=== PATIENT | female | born 1985 | race Caucasian/White ===

== ENCOUNTER 2019-08-07 08:38 | Emergency (ER) | payer OTHER, MEDICAID ==
[~2019-08-07] VITALS: Ht 182.9 cm; Wt 99.8 kg
[2019-08-07 09:06] VITALS: BP 114/80
[2019-08-07 09:25] LABS: Basophils # (auto) 0 uL; Basophils % (auto) 0.8 % (0.0-2.0); Eosinophils # (auto) 0 uL; Eosinophils % (auto) 1.5 % (0.0-7.0); Hematocrit 36.6 % (36.0-46.0); Hemoglobin 12.7 g/dL (12.2-16.2); Lymphocytes # (auto) 1.2 uL; Lymphocytes % (auto) 35.5 % (10.0-50.0); Mean Corpuscular Hemoglobin 30.2 pg (28.0-32.0); Mean Corpuscular Hgb Conc. 34.7 g/dL (32.0-36.0); Monocytes # (auto) 0.2 uL; Monocytes % (auto) 6.2 % (0.0-12.0); Neutrophils # (auto) 1.8 uL; Nucleated Red Blood Cells % 0.3 %; Platelet Count (auto) 97 10^3/uL (140-450); Red Blood Cells 4.21 10^6/uL (4.0-5.20); Red Cell Distribution Width 14.8 % (11.8-14.3); White Blood Cell 3.3 10^3/uL (4.4-10.8)
[2019-08-07 09:50] LABS: Albumin 3.6 g/dL (3.4-5.0); Calcium 9.1 mg/dL (8.5-10.1); Potassium 3.7 mmol/L (3.5-5.1)
[2019-08-07 09:54] LABS: BUN/Creatinine Ratio 13.7; Bilirubin, Total 0.4 mg/dL (0.2-1.0); Total Protein 9.3 g/dL (6.4-8.2)
== END 2019-08-07 10:16 | disposition home or self-care (01) ==
LOC: EDBD 08:38 → ER 08:46
DX: F44.5 Conversion disorder with seizures or convulsions (principal); J32.9 Chronic sinusitis, unspecified; E78.5 Hyperlipidemia, unspecified; Z90.49 Acquired absence of other specified parts of digestive tract
CPT/HCPCS: 36415; 70450; 80053; 85025

== ENCOUNTER → 2019-11-25 | Emergency (ER) | payer OTHER, MEDICAID ==
[~2019-11-25] VITALS: Ht 177.8 cm; Wt 90.7 kg
[~2019-11-25] MED LIST: MECLIZINE HCL 25 MG TAB PO ONE
[2019-11-25 19:00] LABS: Basophils # (auto) 0 10 ^3/uL (0-0.2); Basophils % (auto) 0.3 % (0.0-2.0); Eosinophils # (auto) 0.1 10 ^3/uL (0-0.8); Eosinophils % (auto) 3.1 % (0.0-7.0); Hematocrit 38.7 % (36.0-46.0); Hemoglobin 13.1 g/dL (12.2-16.2); Lymphocytes # (auto) 1.5 10 ^3/uL (0.4-5.4); Lymphocytes % (auto) 37.6 % (10.0-50.0); Mean Corpuscular Hemoglobin 31.2 pg (28.0-32.0); Monocytes # (auto) 0.2 10 ^3/uL (0-1.3); Monocytes % (auto) 4.9 % (0.0-12.0); Neutrophils # (auto) 2.1 10 ^3/uL (1.6-8.6); Neutrophils % (auto) 54.1 % (37.0-80.0); Nucleated Red Blood Cells % 0.1 %; Platelet Count (auto) 115 10^3/uL (140-450); Red Cell Distribution Width 14.5 % (11.8-14.3); White Blood Cell 3.9 10^3/uL (4.4-10.8)
[2019-11-25 19:06] LABS: Urine Bacteria FEW /hpf (None Seen); Urine Blood 2+ /uL (Negative); Urine Mucus FEW (None Seen); Urine Specific Gravity 1.025 (1.001-1.035); Urine WBC 17 /hpf (0 - 5)
[2019-11-25 19:33] LABS: Calcium 8.8 mg/dL (8.5-10.1); Chloride 108 mmol/L (98-107); Potassium 3.5 mmol/L (3.5-5.1); Sodium 138 mmol/L (136-145)
[2019-11-25 19:41] LABS: Alanine Aminotransferase 28 U/L (13-56); Albumin 3.3 g/dL (3.4-5.0); Alkaline Phosphatase 66 U/L (45-117); Anion Gap 4 (5-15); Aspartate Aminotransferase 26 U/L (15-37); BUN/Creatinine Ratio 14.5; Bilirubin, Total 0.2 mg/dL (0.2-1.0); Blood Urea Nitrogen 12 mg/dL (7-18); Carbon Dioxide 26 mmol/L (21-32); GFR African American 101 mL/min; GFR Non-African American 84 mL/min; Glucose 64 mg/dL (74-106); Magnesium 2.5 mg/dL (1.6-2.6)
[2019-11-26] VITALS: BP 126/79
== END | disposition home or self-care (01) ==
LOC: EDUNIT# 18:20 → ER 18:21 → EDBD 18:21
DX: H81.10 Benign paroxysmal vertigo, unspecified ear (principal); N39.0 Urinary tract infection, site not specified
CPT/HCPCS: 36415; 70450; 80053; 81001; 81025; 83735; 84484; 85025; 99285; J8597; 93005

== ENCOUNTER 2019-12-21 19:06 | Emergency (ER) | payer OTHER, MEDICAID ==
[~2019-12-21] VITALS: Ht 172.7 cm; Wt 90.7 kg
[2019-12-21 21:09] VITALS: BP 137/87
== END 2019-12-21 22:00 | disposition home or self-care (01) ==
LOC: ER 19:06
DX: J20.9 Acute bronchitis, unspecified (principal); Z20.828 Contact with and (suspected) exposure to other viral communicable diseases; Z88.0 Allergy status to penicillin; Z88.6 Allergy status to analgesic agent; Z88.5 Allergy status to narcotic agent
CPT/HCPCS: 71045; 87070; 87635; 87804; 87880; 99001

== ENCOUNTER 2020-02-25 18:48 | Emergency (ER) | payer OTHER, MEDICAID ==
[~2020-02-25] VITALS: Ht 180.3 cm; Wt 122.5 kg
[2020-02-25 20:58] LABS: Hematocrit 36.1 % (36.0-46.0); Mean Corpuscular Hemoglobin 29.8 pg (28.0-32.0); Mean Corpuscular Hgb Conc. 33.4 g/dL (32.0-36.0); Mean Corpuscular Volume 89.2 fL (80.0-100.0); Red Blood Cells 4.05 10^6/uL (4.0-5.20); Red Cell Distribution Width 14.4 % (11.8-14.3); White Blood Cell 3.2 10^3/uL (4.4-10.8)
[2020-02-25 20:59] LABS: Platelet Count (auto) 93 10^3/uL (140-450)
[2020-02-25 21:00] LABS: Band Neutrophils % (manual) 0; Basophils % (manual) 0 (0.0-2.0); Blast Cells 0; Eosinophils % (manual) 0 (0-7); Metamyelocytes % 0; Myelocytes % 0; Promyelocytes % 0; Reactive Lymphocytes 0
[2020-02-25 21:13] LABS: Lymphocytes % (manual) 54 (10.0-50.0); Monocytes % (manual) 7 (0-12)
[2020-02-25 21:14] LABS: Albumin 3.4 g/dL (3.4-5.0); Calcium 8.7 mg/dL (8.5-10.1); Potassium 3.2 mmol/L (3.5-5.1)
[2020-02-25 21:18] LABS: BUN/Creatinine Ratio 17.4; Bilirubin, Total 0.4 mg/dL (0.2-1.0); Total Protein 8.4 g/dL (6.4-8.2)
[2020-02-25] MEDS ORDERED: POTASSIUM CHL 20 Meq TABLET PO ONE (21:30)
[2020-02-25] MEDS ORDERED: levETIRAcetam 500 MG TAB PO ONE (23:15)
[2020-02-25 23:20] VITALS: BP 137/95
[2020-02-26 08:35] LABS: Urine Bacteria NONE SEEN /hpf (None Seen); Urine Blood Negative /uL (Negative); Urine Mucus FEW (None Seen); Urine Specific Gravity 1.034 (1.001-1.035); Urine WBC 2 /hpf (0 - 5)
== END 2020-02-25 23:52 | disposition home or self-care (01) ==
LOC: EDBD 18:48 → EDUNIT# 18:48 → ER 18:48
DX: R56.9 Unspecified convulsions (principal)
CPT/HCPCS: 36415; 70450; 80053; 81001; 85007; 85027; 93005

== ENCOUNTER 2020-10-20 15:40 | Emergency (ER) | payer OTHER, MEDICAID ==
[~2020-10-20] VITALS: Ht 180.3 cm; Wt 99.8 kg
[2020-10-20 16:31] LABS: Basophils # (auto) 0 10 ^3/uL (0-0.2); Basophils % (auto) 0.5 % (0.0-2.0); Eosinophils # (auto) 0 10 ^3/uL (0-0.8); Eosinophils % (auto) 0.7 % (0.0-7.0); Lymphocytes # (auto) 1.2 10 ^3/uL (0.4-5.4); Lymphocytes % (auto) 25.7 % (10.0-50.0); Mean Corpuscular Hemoglobin 31.2 pg (28.0-32.0); Mean Corpuscular Hgb Conc. 34.3 g/dL (32.0-36.0); Mean Corpuscular Volume 90.8 fL (80.0-100.0); Monocytes # (auto) 0.2 10 ^3/uL (0-1.3); Monocytes % (auto) 4.8 % (0.0-12.0); Neutrophils # (auto) 3.1 10 ^3/uL (1.6-8.6); Neutrophils % (auto) 68.3 % (37.0-80.0); Nucleated Red Blood Cells % 0.1 %; Red Blood Cells 4.18 10^6/uL (4.0-5.20); Red Cell Distribution Width 13.4 % (11.8-14.3); White Blood Cell 4.5 10^3/uL (4.4-10.8)
[2020-10-20] MEDS ORDERED: ONDANSETRON HCL 4 MG/2 ML VIAL IV ONE (16:45)
[2020-10-20 16:48] LABS: Albumin 3.3 g/dL (3.4-5.0); Calcium 8.7 mg/dL (8.5-10.1); Potassium 3.6 mmol/L (3.5-5.1)
[2020-10-20 16:51] LABS: BUN/Creatinine Ratio 13.4; Bilirubin, Total 0.4 mg/dL (0.2-1.0); Total Protein 9.1 g/dL (6.4-8.2)
[2020-10-20] MEDS ORDERED: ACETAMINOPHEN 325 MG TAB PO ONE (19:30)
[2020-10-20] MEDS ORDERED: levETIRAcetam 500 MG/5ML INJ IV ONE (20:23)
[2020-10-20] MEDS ORDERED: PROMETHAZINE HCL 25 MG/ML 1ML IV ONE (21:45)
[2020-10-21] VITALS: BP 118/67
== END 2020-10-21 00:43 | disposition home or self-care (01) ==
LOC: EDBD 15:40 → ER 15:42
DX: G43.909 Migraine, unspecified, not intractable, without status migrainosus (principal); D69.6 Thrombocytopenia, unspecified
CPT/HCPCS: 36415; 70450; 71045; 80053; 84702; 85025; 96365; 96366; 96375; 99285; J1953; J2405; J2550; J7060; 96361; 96374

== ENCOUNTER 2020-12-01 04:02 | Emergency (ER) | payer OTHER, MEDICAID ==
[~2020-12-01] VITALS: Ht 182.9 cm; Wt 117.9 kg
[2020-12-01] MEDS ORDERED: SODIUM CHLORIDE 0.9% 2,000 ML IV ONE (04:30)
[2020-12-01] MEDS ORDERED: KETOROLAC TROMETH 30 MG/ML 1ML VIAL IV ONE ×2 (04:30→04:45)
[2020-12-01] MEDS ORDERED: ONDANSETRON HCL 4 MG/2 ML VIAL IV ONE (04:30)
[2020-12-01 05:48] LABS: Basophils # (auto) 0 10 ^3/uL (0-0.2); Basophils % (auto) 0.1 % (0.0-2.0); Eosinophils # (auto) 0.1 10 ^3/uL (0-0.8); Eosinophils % (auto) 0.8 % (0.0-7.0); Hemoglobin 12.7 g/dL (12.2-16.2); Lymphocytes # (auto) 0.9 10 ^3/uL (0.4-5.4); Lymphocytes % (auto) 14.6 % (10.0-50.0); Mean Corpuscular Hemoglobin 31.6 pg (28.0-32.0); Mean Corpuscular Hgb Conc. 35.3 g/dL (32.0-36.0); Mean Corpuscular Volume 89.5 fL (80.0-100.0); Monocytes # (auto) 0.3 10 ^3/uL (0-1.3); Monocytes % (auto) 4.2 % (0.0-12.0); Neutrophils # (auto) 5.2 10 ^3/uL (1.6-8.6); Neutrophils % (auto) 80.3 % (37.0-80.0); Platelet Count (auto) 124 10^3/uL (140-450); Red Blood Cells 4.03 10^6/uL (4.0-5.20); Red Cell Distribution Width 13.3 % (11.8-14.3); White Blood Cell 6.4 10^3/uL (4.4-10.8)
[2020-12-01] MEDS ORDERED: LOPERAMIDE 1 mg/7.5ml ORAL soln PO ONE (06:00)
[2020-12-01 06:16] LABS: Albumin 3.3 g/dL (3.4-5.0); BUN/Creatinine Ratio 16.7; Calcium 8.4 mg/dL (8.5-10.1)
[2020-12-01 06:23] LABS: Bilirubin, Total 0.5 mg/dL (0.2-1.0); Total Protein 8.6 g/dL (6.4-8.2)
[2020-12-01 06:54] LABS: Amylase 27 U/L (25-115); Lipase 40 U/L (73-393)
[2020-12-01] MEDS ORDERED: diphenhdrAMINE HCL 50 MG/1 ML VL IV ONE (07:30)
[2020-12-01] MEDS ORDERED: IOHEXOL 300 MG/ML 100ML BOTTLE IJ ONE (07:43)
[2020-12-01 09:30] VITALS: BP 128/81
== END 2020-12-01 10:22 | disposition home or self-care (01) ==
LOC: EDBD 04:02 → ER 04:02
DX: N83.201 Unspecified ovarian cyst, right side (principal); Z20.822 Contact with and (suspected) exposure to COVID-19; Z90.49 Acquired absence of other specified parts of digestive tract; Z86.73 Personal history of transient ischemic attack (TIA), and cerebral infarction without residual deficits
CPT/HCPCS: 36415; 74176; 80053; 82150; 82962; 83690; 85025; 87426; 96361; 96374; 96375; 99285; C9803; J1200; J1885; J2405; J7030; U0003

== ENCOUNTER 2021-01-15 01:29 | Emergency (ER) | payer OTHER, MEDICAID ==
[~2021-01-15] VITALS: Ht 182.9 cm; Wt 113.4 kg
[2021-01-15 04:12] LABS: Urine Amorphous Crystal FEW /hpf (None Seen); Urine Bacteria MANY /hpf (None Seen); Urine Blood Negative /uL (Negative); Urine Specific Gravity 1.019 (1.001-1.035); Urine WBC 4 /hpf (0 - 5)
[2021-01-15 04:24] LABS: Alcohol, Urine < 3.0 mg/dL (0-10); Amphetamine Screen, Urine NEGATIVE (NEGATIVE); Barbiturate Scree,Urine NEGATIVE (NEGATIVE); Benzodiazephine Screen, Urine NEGATIVE (NEGATIVE); Cannabinoid Screen, Urine NEGATIVE (NEGATIVE); Cocaine Screen, Urine NEGATIVE (NEGATIVE); Opiate Scree,Urine NEGATIVE (NEGATIVE); Phencyclidine Screen, Urine NEGATIVE (NEGATIVE)
[2021-01-15] MEDS ORDERED: ACETAMINOPHEN 325 MG TAB PO ONE (06:30)
[2021-01-15 06:31] LABS: Basophils # (auto) 0 10 ^3/uL (0-0.2); Basophils % (auto) 0.6 % (0.0-2.0); Eosinophils # (auto) 0 10 ^3/uL (0-0.8); Eosinophils % (auto) 1.1 % (0.0-7.0); Hematocrit 40.2 % (36.0-46.0); Hemoglobin 13.6 g/dL (12.2-16.2); Lymphocytes # (auto) 1.8 10 ^3/uL (0.4-5.4); Lymphocytes % (auto) 45.2 % (10.0-50.0); Mean Corpuscular Hemoglobin 30.7 pg (28.0-32.0); Mean Corpuscular Hgb Conc. 33.8 g/dL (32.0-36.0); Mean Corpuscular Volume 90.9 fL (80.0-100.0); Monocytes # (auto) 0.2 10 ^3/uL (0-1.3); Monocytes % (auto) 5.3 % (0.0-12.0); Neutrophils # (auto) 1.9 10 ^3/uL (1.6-8.6); Neutrophils % (auto) 47.8 % (37.0-80.0); Nucleated Red Blood Cells % 0.5 %; Platelet Count (auto) 130 10^3/uL (140-450); Red Blood Cells 4.43 10^6/uL (4.0-5.20); Red Cell Distribution Width 13.9 % (11.8-14.3)
[2021-01-15 06:49] LABS: Albumin 3.5 g/dL (3.4-5.0); Calcium 9.1 mg/dL (8.5-10.1); Potassium 3.7 mmol/L (3.5-5.1)
[2021-01-15 06:54] LABS: Bilirubin, Total 0.6 mg/dL (0.2-1.0); Total Protein 8.8 g/dL (6.4-8.2)
[2021-01-15] MEDS ORDERED: CIPROFLOXACIN HYDROCHLORIDE 250 MG TAB PO ONE (07:00)
[2021-01-15 07:34] VITALS: BP 111/71
== END 2021-01-15 09:11 | disposition home or self-care (01) ==
LOC: EDBD 01:29 → ER 01:33
DX: F23 Brief psychotic disorder (principal); Z88.5 Allergy status to narcotic agent; Z88.0 Allergy status to penicillin; Z88.8 Allergy status to other drugs, medicaments and biological substances; Z88.6 Allergy status to analgesic agent
CPT/HCPCS: 36415; 70450; 80053; 80307; 81001; 81025; 85025; 86701; 86703; 93005

== ENCOUNTER 2021-02-15 00:28 | Emergency (ER) | payer OTHER, MEDICAID ==
[~2021-02-15] VITALS: Ht 180.3 cm; Wt 117.9 kg
[2021-02-15 02:41] LABS: Alanine Aminotransferase 20 U/L (13-56); Albumin 3.3 g/dL (3.4-5.0); Anion Gap 7 (5-15); Aspartate Aminotransferase 20 U/L (15-37); BUN/Creatinine Ratio 17.1; Blood Urea Nitrogen 13 mg/dL (7-18); Calcium 9.2 mg/dL (8.5-10.1); Carbon Dioxide 23 mmol/L (21-32); Chloride 108 mmol/L (98-107); GFR African American 111 mL/min; GFR Non-African American 92 mL/min; Glucose 92 mg/dL (74-106); Potassium 3.7 mmol/L (3.5-5.1); Sodium 138 mmol/L (136-145)
[2021-02-15 02:42] LABS: Basophils # (auto) 0 10 ^3/uL (0-0.2); Basophils % (auto) 0.3 % (0.0-2.0); Eosinophils # (auto) 0.1 10 ^3/uL (0-0.8); Eosinophils % (auto) 1.7 % (0.0-7.0); Hemoglobin 12.3 g/dL (12.2-16.2); Lymphocytes # (auto) 1.7 10 ^3/uL (0.4-5.4); Lymphocytes % (auto) 40.8 % (10.0-50.0); Mean Corpuscular Hemoglobin 30.6 pg (28.0-32.0); Mean Corpuscular Hgb Conc. 34.3 g/dL (32.0-36.0); Mean Corpuscular Volume 89.2 fL (80.0-100.0); Monocytes # (auto) 0.2 10 ^3/uL (0-1.3); Monocytes % (auto) 5.8 % (0.0-12.0); Neutrophils # (auto) 2.1 10 ^3/uL (1.6-8.6); Neutrophils % (auto) 51.4 % (37.0-80.0); Nucleated Red Blood Cells % 0.2 %; Platelet Count (auto) 140 10^3/uL (140-450); Red Blood Cells 4.04 10^6/uL (4.0-5.20); Red Cell Distribution Width 13.5 % (11.8-14.3); White Blood Cell 4.2 10^3/uL (4.4-10.8)
[2021-02-15] MEDS ORDERED: ONDANSETRON HCL 4 MG/2 ML VIAL IV ONE (02:45)
[2021-02-15] MEDS ORDERED: ACETAMINOPHEN 500 MG TAB PO ONE (02:45)
[2021-02-15 02:46] LABS: Alkaline Phosphatase 60 U/L (45-117); Bilirubin, Total 0.7 mg/dL (0.2-1.0); Total Protein 8.1 g/dL (6.4-8.2)
[2021-02-15] MEDS ORDERED: SODIUM CHLORIDE 0.9% 1,000 ML IV ONE (03:30)
[2021-02-15 07:24] VITALS: BP 108/75
== END 2021-02-15 07:52 | disposition home or self-care (01) ==
LOC: ER 00:28 → EDBD 00:28 → ER 07:52
DX: R11.2 Nausea with vomiting, unspecified (principal); R19.7 Diarrhea, unspecified; R42 Dizziness and giddiness; F41.9 Anxiety disorder, unspecified; Z20.822 Contact with and (suspected) exposure to COVID-19; Z86.73 Personal history of transient ischemic attack (TIA), and cerebral infarction without residual deficits; Z86.19 Personal history of other infectious and parasitic diseases; Z88.5 Allergy status to narcotic agent; Z88.6 Allergy status to analgesic agent; Z88.0 Allergy status to penicillin; Z88.8 Allergy status to other drugs, medicaments and biological substances; Z90.49 Acquired absence of other specified parts of digestive tract; Z98.890 Other specified postprocedural states
CPT/HCPCS: 36415; 71045; 80053; 82728; 83605; 83615; 83880; 84484; 85025; 87426; 93005; 96361; 96374; 99285; J2405; J7030; 96375

== ENCOUNTER 2021-04-01 01:14 | Inpatient (IN) | payer OTHER, MEDICAID ==
[~2021-04-01] VITALS: Ht 208.3 cm; Wt 134.2 kg
[2021-04-01 01:52] LABS: Basophils # (auto) 0 10 ^3/uL (0-0.2); Basophils % (auto) 0.5 % (0.0-2.0); Eosinophils # (auto) 0.1 10 ^3/uL (0-0.8); Eosinophils % (auto) 1.7 % (0.0-7.0); Hematocrit 37.2 % (36.0-46.0); Hemoglobin 12.8 g/dL (12.2-16.2); Lymphocytes % (auto) 44.7 % (10.0-50.0); Mean Corpuscular Hemoglobin 30.9 pg (28.0-32.0); Mean Corpuscular Hgb Conc. 34.4 g/dL (32.0-36.0); Mean Corpuscular Volume 89.8 fL (80.0-100.0); Monocytes # (auto) 0.3 10 ^3/uL (0-1.3); Monocytes % (auto) 5.7 % (0.0-12.0); Neutrophils # (auto) 2.1 10 ^3/uL (1.6-8.6); Neutrophils % (auto) 47.4 % (37.0-80.0); Nucleated Red Blood Cells % 2.2 %; Red Blood Cells 4.14 10^6/uL (4.0-5.20); Red Cell Distribution Width 14.1 % (11.8-14.3); White Blood Cell 4.4 10^3/uL (4.4-10.8)
[2021-04-01 02:11] LABS: Albumin 3.2 g/dL (3.4-5.0); Calcium 8.5 mg/dL (8.5-10.1); Potassium 3.6 mmol/L (3.5-5.1)
[2021-04-01 02:13] LABS: BUN/Creatinine Ratio 11.9
[2021-04-01 02:16] LABS: Bilirubin, Total 0.3 mg/dL (0.2-1.0); Total Protein 8.3 g/dL (6.4-8.2)
[2021-04-01 05:05] LABS: Urine Bacteria FEW /hpf (None Seen); Urine Blood Negative /uL (Negative); Urine Mucus FEW (None Seen); Urine Specific Gravity 1.039 (1.001-1.035); Urine WBC 33 /hpf (0 - 5)
[2021-04-01] MEDS ORDERED: ASPirin 325 MG TAB PO ONE (07:15)
[2021-04-01] MEDS ORDERED: ONDANSETRON HCL 4 MG/2 ML VIAL IV PRN (10:45)
[2021-04-01] MEDS ORDERED: DOCUSATE SOD 100 MG CAP PO PRN (10:45)
[2021-04-01] MEDS ORDERED: NITROGLYCERIN 0.4 MG SL TAB SL PRN (10:45)
[2021-04-01] MEDS: cefTRIAXone 1GM/50ML D5W 50 ML IV SCH (12:32)
[2021-04-01 12:39] LABS: Cholesterol 169 mg/dL (< 200); HDL Cholesterol 37 mg/dL (40-59); LDL Cholesterol 104 mg/dL (< 100); Triglycerides 182 mg/dL (< 150)
[2021-04-01] MEDS ORDERED: LEVE500T3 PO (13:57)
[2021-04-01] MEDS ORDERED: ASPI1TAB20 PO (14:42)
[2021-04-01] MEDS ORDERED: EMTR1TAB12 PO (14:42)
[2021-04-01] MEDS ORDERED: ASCO100076 PO (14:42)
[2021-04-01] MEDS ORDERED: CYAN100L PO (14:42)
[2021-04-01] MEDS ORDERED: MULT1CHW PO (14:42)
[2021-04-01] MEDS ORDERED: ACET-1304 PO (14:42)
[2021-04-01] MEDS ORDERED: ZINC100T5 PO (14:42)
[2021-04-01] MEDS: ACETAMINOPHEN 500 MG TAB PO PRN ×2 (15:23→22:57)
[2021-04-01 17:00] VITALS: BP 139/77
[2021-04-01] MEDS: levETIRAcetam 500 MG TAB PO SCH (21:41)
[2021-04-01 22:00] VITALS: BP 128/75
[2021-04-01] MEDS ORDERED: ATORVASTATIN 20 MG TAB PO SCH (22:00)
[2021-04-01] MEDS: guaiFENesin-DM 100/10mg/5ml SYR PO PRN (23:30)
[2021-04-02 05:00] VITALS: BP 125/71
[2021-04-02] MEDS: levETIRAcetam 500 MG TAB PO SCH (08:47)
[2021-04-02] MEDS: cefTRIAXone 1GM/50ML D5W 50 ML IV SCH (08:47)
[2021-04-02 09:00] VITALS: BP 142/89
[2021-04-02] MEDS ORDERED: ASPirin-EC 81 mg tab PO SCH (10:00)
[2021-04-02] MEDS ORDERED: LORazepam 2MG/ML-1ML VIAL IV ONE (11:15)
[2021-04-02 13:00] VITALS: BP 120/74
[2021-04-02] MEDS: guaiFENesin-DM 100/10mg/5ml SYR PO PRN (13:58)
[2021-04-02 17:07] VITALS: BP 138/85
[2021-04-02] MEDS ORDERED: LEVO500T31 PO (18:41)
[2021-04-02 20:39] VITALS: BP 155/83
== END 2021-04-02 21:35 | disposition home or self-care (01) | DRG 69 ==
LOC: EDBD 01:14 → ER 01:14 → TELE-WESTW 10:37
PROVIDERS: ADMIT Nurse Practitioner Acute Care; ATTEND Internal Medicine
DX: G45.9 Transient cerebral ischemic attack, unspecified (principal); N39.0 Urinary tract infection, site not specified; G81.94 Hemiplegia, unspecified affecting left nondominant side; R42 Dizziness and giddiness; B19.20 Unspecified viral hepatitis C without hepatic coma; E66.9 Obesity, unspecified; G40.909 Epilepsy, unspecified, not intractable, without status epilepticus; I10 Essential (primary) hypertension; J32.0 Chronic maxillary sinusitis; R29.810 Facial weakness; F41.9 Anxiety disorder, unspecified; Z20.822 Contact with and (suspected) exposure to COVID-19; Z79.82 Long term (current) use of aspirin; Z79.899 Other long term (current) drug therapy; Z82.3 Family history of stroke; Z82.49 Family history of ischemic heart disease and other diseases of the circulatory system; Z83.3 Family history of diabetes mellitus; Z90.49 Acquired absence of other specified parts of digestive tract; Z68.24 Body mass index [BMI] 24.0-24.9, adult
CPT/HCPCS: 36415; 70450; 70551; 71045; 80053; 80061; 81001; 84484; 84702; 85025; 87086; 87426; 93005; 93306; 96365; G0378; J0696

== ENCOUNTER 2021-05-22 17:20 | Emergency (ER) | payer OTHER, MEDICAID ==
[~2021-05-22] VITALS: Ht 177.8 cm; Wt 113.4 kg
[~2021-05-22 17:20] MED LIST changes: +ACET-1304 PO; +ASCO100076 PO; +ASPI-231 PO; +CYAN100L PO; +EMTR1TAB12 PO; +LEVE500T3 PO; +LEVO500T31 PO; -MECLIZINE HCL 25 MG TAB PO ONE; +MULT1CHW PO; +ZINC100T5 PO
[2021-05-22 20:26] LABS: Alanine Aminotransferase 36 U/L (13-56); Albumin 2.8 g/dL (3.4-5.0); Anion Gap 10 (5-15); Aspartate Aminotransferase 36 U/L (15-37); BUN/Creatinine Ratio 8.5; Blood Urea Nitrogen 6 mg/dL (7-18); Calcium 8.6 mg/dL (8.5-10.1); Carbon Dioxide 21 mmol/L (21-32); Chloride 109 mmol/L (98-107); GFR African American 120 mL/min; GFR Non-African American 100 mL/min; Glucose 97 mg/dL (74-106); Potassium 3.8 mmol/L (3.5-5.1); Sodium 140 mmol/L (136-145)
[2021-05-22 20:30] LABS: Alkaline Phosphatase 71 U/L (45-117); Bilirubin, Total 0.2 mg/dL (0.2-1.0); Total Protein 8.1 g/dL (6.4-8.2)
[2021-05-22 20:36] LABS: Basophils # (auto) 0 10 ^3/uL (0-0.2); Basophils % (auto) 0.4 % (0.0-2.0); Eosinophils # (auto) 0.1 10 ^3/uL (0-0.8); Eosinophils % (auto) 1.8 % (0.0-7.0); Hematocrit 38.2 % (36.0-46.0); Hemoglobin 12.8 g/dL (12.2-16.2); Lymphocytes # (auto) 1.6 10 ^3/uL (0.4-5.4); Lymphocytes % (auto) 37.1 % (10.0-50.0); Mean Corpuscular Hemoglobin 30.8 pg (28.0-32.0); Mean Corpuscular Hgb Conc. 33.6 g/dL (32.0-36.0); Mean Corpuscular Volume 91.7 fL (80.0-100.0); Monocytes # (auto) 0.2 10 ^3/uL (0-1.3); Monocytes % (auto) 5.3 % (0.0-12.0); Neutrophils # (auto) 2.4 10 ^3/uL (1.6-8.6); Neutrophils % (auto) 55.4 % (37.0-80.0); Nucleated Red Blood Cells % 0.1 %; Red Blood Cells 4.16 10^6/uL (4.0-5.20); Red Cell Distribution Width 13.9 % (11.8-14.3); White Blood Cell 4.4 10^3/uL (4.4-10.8)
[2021-05-22 21:27] VITALS: BP 136/82
== END 2021-05-23 00:04 | disposition home or self-care (01) ==
LOC: EDBD 17:20 → ER 17:20
DX: R53.1 Weakness (principal); E66.9 Obesity, unspecified; Z68.39 Body mass index [BMI] 39.0-39.9, adult; Z86.73 Personal history of transient ischemic attack (TIA), and cerebral infarction without residual deficits; Z90.49 Acquired absence of other specified parts of digestive tract; Z79.82 Long term (current) use of aspirin; Z79.899 Other long term (current) drug therapy; Z88.0 Allergy status to penicillin; Z88.5 Allergy status to narcotic agent; Z88.8 Allergy status to other drugs, medicaments and biological substances
CPT/HCPCS: 36415; 70450; 80053; 84484; 85025; 93005

== ENCOUNTER 2021-05-26 11:44 | Emergency (ER) | payer OTHER, MEDICAID ==
[~2021-05-26] VITALS: Ht 180.3 cm; Wt 113.4 kg
[2021-05-26] MEDS ORDERED: PANTOPRAZOLE 40 MG/10 ML VIAL INJ IV ONE (12:00)
[2021-05-26] MEDS ORDERED: SODIUM CHLORIDE 0.9% 1,000 ML IV ONE (12:00)
[2021-05-26] MEDS ORDERED: PROCHLORPERAZINE EDISYLATE 5 MG/ML 2ML VIAL IV ONE (12:00)
[2021-05-26 12:25] LABS: Basophils # (auto) 0 10 ^3/uL (0-0.2); Basophils % (auto) 0.3 % (0.0-2.0); Eosinophils # (auto) 0 10 ^3/uL (0-0.8); Eosinophils % (auto) 0.2 % (0.0-7.0); Hematocrit 37.7 % (36.0-46.0); Hemoglobin 12.8 g/dL (12.2-16.2); Lymphocytes % (auto) 28.7 % (10.0-50.0); Mean Corpuscular Hemoglobin 30.5 pg (28.0-32.0); Mean Corpuscular Hgb Conc. 33.9 g/dL (32.0-36.0); Monocytes # (auto) 0.1 10 ^3/uL (0-1.3); Monocytes % (auto) 3.7 % (0.0-12.0); Neutrophils # (auto) 2.3 10 ^3/uL (1.6-8.6); Neutrophils % (auto) 67.1 % (37.0-80.0); Nucleated Red Blood Cells % 0.1 %; Red Blood Cells 4.19 10^6/uL (4.0-5.20); Red Cell Distribution Width 13.7 % (11.8-14.3); White Blood Cell 3.5 10^3/uL (4.4-10.8)
[2021-05-26 12:46] LABS: Albumin 3.1 g/dL (3.4-5.0); BUN/Creatinine Ratio 9.2; Bilirubin, Total 0.4 mg/dL (0.2-1.0); Total Protein 8.6 g/dL (6.4-8.2)
[2021-05-26 15:05] VITALS: BP 146/99
== END 2021-05-26 15:08 | disposition home or self-care (01) ==
LOC: EDBD 11:44 → ER 11:44
DX: K29.70 Gastritis, unspecified, without bleeding (principal); F10.239 Alcohol dependence with withdrawal, unspecified; R11.2 Nausea with vomiting, unspecified; Y90.9 Presence of alcohol in blood, level not specified; Z86.19 Personal history of other infectious and parasitic diseases; Z88.5 Allergy status to narcotic agent; Z88.6 Allergy status to analgesic agent; Z88.0 Allergy status to penicillin; Z88.8 Allergy status to other drugs, medicaments and biological substances; Z79.899 Other long term (current) drug therapy; Z90.49 Acquired absence of other specified parts of digestive tract; Z98.890 Other specified postprocedural states
CPT/HCPCS: 36415; 80053; 80320; 85025; 96361; 96374; 96375; 99284; C9113; J0780; J7030

== ENCOUNTER 2021-06-16 23:44 | Emergency (ER) | payer MEDICAID, OTHER ==
[~2021-06-16] VITALS: Ht 180.3 cm; Wt 122.5 kg
[2021-06-17 00:58] LABS: Basophils # (auto) 0 10 ^3/uL (0-0.2); Basophils % (auto) 0.3 % (0.0-2.0); Eosinophils # (auto) 0.1 10 ^3/uL (0-0.8); Eosinophils % (auto) 2.3 % (0.0-7.0); Hematocrit 41.7 % (36.0-46.0); Hemoglobin 13.9 g/dL (12.2-16.2); Lymphocytes % (auto) 41.9 % (10.0-50.0); Mean Corpuscular Hgb Conc. 33.3 g/dL (32.0-36.0); Mean Corpuscular Volume 90.2 fL (80.0-100.0); Monocytes # (auto) 0.3 10 ^3/uL (0-1.3); Monocytes % (auto) 6.2 % (0.0-12.0); Neutrophils # (auto) 2.4 10 ^3/uL (1.6-8.6); Neutrophils % (auto) 49.3 % (37.0-80.0); Nucleated Red Blood Cells % 0.1 %; Red Blood Cells 4.62 10^6/uL (4.0-5.20); Red Cell Distribution Width 13.3 % (11.8-14.3); White Blood Cell 4.8 10^3/uL (4.4-10.8)
[2021-06-17 01:18] LABS: Alanine Aminotransferase 34 U/L (13-56); Anion Gap 8 (5-15); Aspartate Aminotransferase 22 U/L (15-37); BUN/Creatinine Ratio 17.9; Blood Urea Nitrogen 14 mg/dL (7-18); Calcium 9.3 mg/dL (8.5-10.1); Carbon Dioxide 23 mmol/L (21-32); Chloride 107 mmol/L (98-107); GFR African American 107 mL/min; GFR Non-African American 89 mL/min; Glucose 101 mg/dL (74-106); Potassium 3.7 mmol/L (3.5-5.1); Sodium 138 mmol/L (136-145)
[2021-06-17 01:23] LABS: Alkaline Phosphatase 71 U/L (45-117); Bilirubin, Total 0.3 mg/dL (0.2-1.0); Total Protein 8.4 g/dL (6.4-8.2)
[2021-06-17 03:22] LABS: Urine Bacteria NONE SEEN /hpf (None Seen); Urine Blood Negative /uL (Negative); Urine Specific Gravity 1.033 (1.001-1.035); Urine WBC 1 /hpf (0 - 5)
[2021-06-17] MEDS ORDERED: KETOROLAC TROMETH 60MG/2ML VIAL IM ONE (03:30)
[2021-06-17] MEDS ORDERED: ACETAMINOPHEN 500 MG TAB PO ONE (03:30)
[2021-06-17 05:50] VITALS: BP 131/75
== END 2021-06-17 05:54 | disposition home or self-care (01) ==
LOC: EDBD 23:44 → ER 23:45
DX: R07.89 Other chest pain (principal); Z86.19 Personal history of other infectious and parasitic diseases; Z86.73 Personal history of transient ischemic attack (TIA), and cerebral infarction without residual deficits; Z88.5 Allergy status to narcotic agent; Z88.6 Allergy status to analgesic agent; Z88.0 Allergy status to penicillin; Z79.899 Other long term (current) drug therapy; Z79.82 Long term (current) use of aspirin; Z90.49 Acquired absence of other specified parts of digestive tract; Z98.890 Other specified postprocedural states
CPT/HCPCS: 36415; 71045; 80053; 81001; 81025; 83880; 84484; 85025; 93005

== ENCOUNTER 2021-09-17 15:26 | Emergency (ER) | payer OTHER ==
[~2021-09-17] VITALS: Ht 180.3 cm; Wt 136.5 kg
[~2021-09-17 15:26] MED LIST changes: -ASPI-231 PO; +ASPI1TAB20 PO
[2021-09-17 18:49] LABS: Urine Amorphous Crystal FEW /hpf (None Seen); Urine Bacteria NONE SEEN /hpf (None Seen); Urine Blood 1+ /uL (Negative); Urine Specific Gravity 1.016 (1.001-1.035); Urine WBC 1 /hpf (0 - 5)
[2021-09-17] MEDS ORDERED: SODIUM CHLORIDE 0.9% 1,000 ML IV ONE (22:15)
[2021-09-17] MEDS ORDERED: fentaNYL CITRATE 100 MCG/2 ML VL IV ONE (22:15)
[2021-09-17] MEDS ORDERED: ONDANSETRON HCL 4 MG/2 ML VIAL IV ONE (22:15)
[2021-09-18 00:03] LABS: Basophils # (auto) 0 10 ^3/uL (0-0.2); Basophils % (auto) 0.5 % (0.0-2.0); Eosinophils # (auto) 0.2 10 ^3/uL (0-0.8); Eosinophils % (auto) 2.4 % (0.0-7.0); Hematocrit 38.4 % (36.0-46.0); Hemoglobin 13.1 g/dL (12.2-16.2); Lymphocytes # (auto) 2.6 10 ^3/uL (0.4-5.4); Lymphocytes % (auto) 37.6 % (10.0-50.0); Mean Corpuscular Hemoglobin 30.1 pg (28.0-32.0); Mean Corpuscular Hgb Conc. 34.1 g/dL (32.0-36.0); Mean Corpuscular Volume 88.3 fL (80.0-100.0); Monocytes # (auto) 0.3 10 ^3/uL (0-1.3); Neutrophils # (auto) 3.8 10 ^3/uL (1.6-8.6); Neutrophils % (auto) 54.5 % (37.0-80.0); Nucleated Red Blood Cells % 0.2 %; Red Blood Cells 4.34 10^6/uL (4.0-5.20); Red Cell Distribution Width 13.4 % (11.8-14.3); White Blood Cell 6.9 10^3/uL (4.4-10.8)
[2021-09-18 00:25] LABS: Albumin 3.4 g/dL (3.4-5.0); BUN/Creatinine Ratio 9.9; Calcium 8.9 mg/dL (8.5-10.1)
[2021-09-18 00:28] LABS: Bilirubin, Total 0.5 mg/dL (0.2-1.0); Total Protein 8.1 g/dL (6.4-8.2)
[2021-09-18 03:33] VITALS: BP 137/74
== END 2021-09-18 03:33 | disposition home or self-care (01) ==
LOC: ER 15:26
DX: M54.50 Low back pain, unspecified (principal); R10.9 Unspecified abdominal pain; E78.5 Hyperlipidemia, unspecified; G89.29 Other chronic pain; Z86.73 Personal history of transient ischemic attack (TIA), and cerebral infarction without residual deficits; Z90.49 Acquired absence of other specified parts of digestive tract; Z79.82 Long term (current) use of aspirin; Z79.899 Other long term (current) drug therapy; Z88.0 Allergy status to penicillin; Z88.5 Allergy status to narcotic agent; Z88.8 Allergy status to other drugs, medicaments and biological substances
CPT/HCPCS: 36415; 80053; 81001; 81025; 83605; 83690; 84702; 85025; 87086; 96361; 96374; 96375; 99284; J2405; J3010; J7030

== ENCOUNTER 2022-02-19 19:45 | Emergency (ER) | payer OTHER, MEDICAID ==
[~2022-02-19] VITALS: Ht 180.3 cm; Wt 122.5 kg
[2022-02-19 21:41] LABS: Basophils # (auto) 0 10 ^3/uL (0-0.2); Basophils % (auto) 0.4 % (0.0-2.0); Eosinophils # (auto) 0.1 10 ^3/uL (0-0.8); Eosinophils % (auto) 1.3 % (0.0-7.0); Hematocrit 37.9 % (36.0-46.0); Hemoglobin 13.3 g/dL (12.2-16.2); Lymphocytes % (auto) 48.7 % (10.0-50.0); Mean Corpuscular Hemoglobin 31.2 pg (28.0-32.0); Mean Corpuscular Hgb Conc. 35.1 g/dL (32.0-36.0); Mean Corpuscular Volume 88.9 fL (80.0-100.0); Monocytes # (auto) 0.3 10 ^3/uL (0-1.3); Monocytes % (auto) 6.2 % (0.0-12.0); Neutrophils # (auto) 1.8 10 ^3/uL (1.6-8.6); Neutrophils % (auto) 43.4 % (37.0-80.0); Nucleated Red Blood Cells % 0.1 %; Red Blood Cells 4.27 10^6/uL (4.0-5.20); Red Cell Distribution Width 13.7 % (11.8-14.3); White Blood Cell 4.2 10^3/uL (4.4-10.8)
[2022-02-19 21:59] LABS: Albumin 3.1 g/dL (3.4-5.0); Anion Gap 9 (5-15); Blood Urea Nitrogen 8 mg/dL (7-18); Calcium 8.5 mg/dL (8.5-10.1); Carbon Dioxide 20 mmol/L (21-32); Chloride 110 mmol/L (98-107); Glucose 101 mg/dL (74-106); Potassium 3.8 mmol/L (3.5-5.1); Sodium 139 mmol/L (136-145)
[2022-02-19 22:01] LABS: Alanine Aminotransferase 31 U/L (13-56); Aspartate Aminotransferase 27 U/L (15-37); BUN/Creatinine Ratio 10.3; GFR African American 107 mL/min; GFR Non-African American 89 mL/min
[2022-02-19 22:04] LABS: Alkaline Phosphatase 68 U/L (45-117); Bilirubin, Total 0.3 mg/dL (0.2-1.0); Total Protein 7.9 g/dL (6.4-8.2)
[2022-02-19 23:45] VITALS: BP 128/82
== END 2022-02-20 00:07 | disposition home or self-care (01) ==
LOC: ER 19:45 → EDBD 19:45 → ER 23:50
DX: R56.9 Unspecified convulsions (principal); E78.5 Hyperlipidemia, unspecified; F12.10 Cannabis abuse, uncomplicated; Z86.73 Personal history of transient ischemic attack (TIA), and cerebral infarction without residual deficits; Z90.49 Acquired absence of other specified parts of digestive tract; Z88.0 Allergy status to penicillin; Z88.8 Allergy status to other drugs, medicaments and biological substances
CPT/HCPCS: 36415; 70450; 80053; 85025; 93005

== ENCOUNTER 2022-03-06 23:16 | Emergency (ER) | payer OTHER, MEDICAID ==
[~2022-03-06] VITALS: Ht 167.6 cm; Wt 127.0 kg
[2022-03-07] MEDS ORDERED: PANTOPRAZOLE 40mg/50ML NS AE 50 ML IV ONE
[2022-03-07] MEDS ORDERED: PANTOPRAZOLE 80 MG in SODIUM CHL 0.9% 100 ML IV ONE ×2
[2022-03-07 00:03] LABS: Basophils # (auto) 0 10 ^3/uL (0-0.2); Basophils % (auto) 0.4 % (0.0-2.0); Eosinophils # (auto) 0 10 ^3/uL (0-0.8); Eosinophils % (auto) 0.9 % (0.0-7.0); Hematocrit 35.9 % (36.0-46.0); Hemoglobin 12.2 g/dL (12.2-16.2); Lymphocytes # (auto) 1.5 10 ^3/uL (0.4-5.4); Lymphocytes % (auto) 32.1 % (10.0-50.0); Mean Corpuscular Hgb Conc. 33.8 g/dL (32.0-36.0); Mean Corpuscular Volume 88.5 fL (80.0-100.0); Monocytes # (auto) 0.2 10 ^3/uL (0-1.3); Monocytes % (auto) 4.5 % (0.0-12.0); Neutrophils % (auto) 62.1 % (37.0-80.0); Nucleated Red Blood Cells % 0.2 %; Red Blood Cells 4.06 10^6/uL (4.0-5.20); Red Cell Distribution Width 13.8 % (11.8-14.3); White Blood Cell 4.8 10^3/uL (4.4-10.8)
[2022-03-07 00:16] LABS: Partial Thromboplastin Time 23.7 sec (23.6-33.0)
[2022-03-07 00:20] LABS: Albumin 3.2 g/dL (3.4-5.0); BUN/Creatinine Ratio 12.3; Potassium 3.4 mmol/L (3.5-5.1)
[2022-03-07 00:22] LABS: Bilirubin, Total 0.5 mg/dL (0.2-1.0); Total Protein 7.9 g/dL (6.4-8.2)
[2022-03-07 00:38] LABS: Lipase 81 U/L (73-393)
[2022-03-07 00:39] LABS: Blood Alcohol < 3.0 mg/dL (0-5)
[2022-03-07 09:56] LABS: Urine Bacteria FEW /hpf (None Seen); Urine Blood Negative /uL (Negative); Urine Mucus FEW (None Seen); Urine WBC 7 /hpf (0 - 5)
[2022-03-07] MEDS ORDERED: FURO1TAB33 PO (13:06)
[2022-03-07] MEDS ORDERED: SPIR25TA PO (13:06)
[2022-03-07] MEDS ORDERED: CIPR-173 PO (13:06)
[2022-03-07] MEDS ORDERED: OMEP-263 PO (13:06)
[2022-03-07] MEDS ORDERED: METO-281 PO (13:06)
[2022-03-07 13:48] VITALS: BP 122/72
== END 2022-03-07 12:57 | disposition home or self-care (01) ==
LOC: EDBD 23:16 → ER 23:16
DX: I63.9 Cerebral infarction, unspecified (principal); R53.1 Weakness; K92.0 Hematemesis; K92.2 Gastrointestinal hemorrhage, unspecified; E78.5 Hyperlipidemia, unspecified; Z90.49 Acquired absence of other specified parts of digestive tract; Z79.82 Long term (current) use of aspirin; Z79.1 Long term (current) use of non-steroidal anti-inflammatories (NSAID); Z79.899 Other long term (current) drug therapy; Z88.0 Allergy status to penicillin; Z88.5 Allergy status to narcotic agent; Z88.8 Allergy status to other drugs, medicaments and biological substances; Z20.822 Contact with and (suspected) exposure to COVID-19
CPT/HCPCS: 36415; 70450; 71045; 74176; 80053; 80320; 81001; 82140; 83605; 83690; 83880; 84484; 84702; 85025; 85610; 85730; 87426; 93005; 96365; 99285; C9113

== ENCOUNTER 2022-03-29 14:21 | Emergency (ER) | payer OTHER, MEDICAID ==
[~2022-03-29 14:21] MED LIST changes: +CIPR-173 PO; +FURO1TAB33 PO; +METO-281 PO; +OMEP-263 PO; +SPIR25TA PO
[2022-03-29 14:50] VITALS: BP 100/76
[2022-03-29] MEDS ORDERED: SODIUM CHLORIDE 0.9% 1,000 ML IV ONE ×2 (15:00)
== END 2022-03-29 18:36 | disposition home or self-care (01) ==
LOC: EDBD 14:21 → ER 14:21
DX: H81.12 Benign paroxysmal vertigo, left ear (principal); E86.0 Dehydration; F12.10 Cannabis abuse, uncomplicated; E78.5 Hyperlipidemia, unspecified; Z90.49 Acquired absence of other specified parts of digestive tract; Z86.73 Personal history of transient ischemic attack (TIA), and cerebral infarction without residual deficits
CPT/HCPCS: 70450

== ENCOUNTER 2022-05-21 20:57 | Emergency (ER) | payer OTHER, MEDICAID ==
[~2022-05-21] VITALS: Ht 152.4 cm; Wt 276.0 kg
[~2022-05-21 20:57] MED LIST changes: +FAMO-161 PO; +LEVE500T32 PO
[2022-05-22 00:29] LABS: Basophils # (auto) 0.1 10 ^3/uL (0-0.2); Basophils % (auto) 2.4 % (0.0-2.0); Eosinophils # (auto) 0.1 10 ^3/uL (0-0.8); Eosinophils % (auto) 2.1 % (0.0-7.0); Hematocrit 39.7 % (36.0-46.0); Hemoglobin 13.1 g/dL (12.2-16.2); Lymphocytes # (auto) 2.2 10 ^3/uL (0.4-5.4); Lymphocytes % (auto) 42.8 % (10.0-50.0); Mean Corpuscular Hemoglobin 29.1 pg (28.0-32.0); Mean Corpuscular Hgb Conc. 33.1 g/dL (32.0-36.0); Monocytes # (auto) 0.2 10 ^3/uL (0-1.3); Monocytes % (auto) 3.5 % (0.0-12.0); Neutrophils # (auto) 2.5 10 ^3/uL (1.6-8.6); Neutrophils % (auto) 49.2 % (37.0-80.0); Nucleated Red Blood Cells % 0.2 %; Red Blood Cells 4.51 10^6/uL (4.0-5.20); Red Cell Distribution Width 14.3 % (11.8-14.3); White Blood Cell 5.1 10^3/uL (4.4-10.8)
[2022-05-22 00:40] LABS: Albumin 3.4 g/dL (3.4-5.0); Calcium 8.7 mg/dL (8.5-10.1); Potassium 3.7 mmol/L (3.5-5.1)
[2022-05-22 00:44] LABS: Bilirubin, Total 0.6 mg/dL (0.2-1.0); Total Protein 8.5 g/dL (6.4-8.2)
[2022-05-22 08:28] VITALS: BP 160/88
[2022-05-22] MEDS ORDERED: HYDROcodone-ACET 10/325MG TAB PO ONE (09:15)
== END 2022-05-22 09:25 | disposition home or self-care (01) ==
LOC: EDBD 20:57 → EDUNIT# 20:57 → ER 20:57
DX: R07.89 Other chest pain (principal); F41.9 Anxiety disorder, unspecified; E78.5 Hyperlipidemia, unspecified; F12.10 Cannabis abuse, uncomplicated; Z86.73 Personal history of transient ischemic attack (TIA), and cerebral infarction without residual deficits; Z90.49 Acquired absence of other specified parts of digestive tract; Z88.0 Allergy status to penicillin; Z88.6 Allergy status to analgesic agent
CPT/HCPCS: 36415; 80053; 83880; 84484; 85025; 93005

== ENCOUNTER 2022-11-03 07:47 | Emergency (ER) | payer OTHER ==
[~2022-11-03] VITALS: Ht 180.3 cm; Wt 125.0 kg
[2022-11-03] MEDS ORDERED: PROCHLORPERAZINE EDISYLATE 5 MG/ML 2ML VIAL IV ONE (08:00)
[2022-11-03] MEDS ORDERED: SODIUM CHLORIDE 0.9% 1,000 ML IVB ONE (08:00)
[2022-11-03] MEDS ORDERED: PANTOPRAZOLE 40 MG/10 ML VIAL INJ IV ONE (08:00)
[2022-11-03 08:25] LABS: Urine Bacteria NONE SEEN /hpf (None Seen); Urine Blood Negative /uL (Negative); Urine Mucus FEW (None Seen); Urine Specific Gravity 1.019 (1.001-1.035); Urine WBC 2 /hpf (0 - 5)
[2022-11-03 08:34] LABS: Basophils # (auto) 0 10 ^3/uL (0-0.2); Basophils % (auto) 0.1 % (0.0-2.0); Eosinophils # (auto) 0 10 ^3/uL (0-0.8); Eosinophils % (auto) 0.8 % (0.0-7.0); Hematocrit 35.9 % (36.0-46.0); Hemoglobin 12.6 g/dL (12.2-16.2); Lymphocytes # (auto) 1.2 10 ^3/uL (0.4-5.4); Lymphocytes % (auto) 35.4 % (10.0-50.0); Mean Corpuscular Hemoglobin 31.3 pg (28.0-32.0); Mean Corpuscular Hgb Conc. 35.2 g/dL (32.0-36.0); Mean Corpuscular Volume 88.9 fL (80.0-100.0); Monocytes # (auto) 0.2 10 ^3/uL (0-1.3); Monocytes % (auto) 4.7 % (0.0-12.0); Neutrophils # (auto) 2.1 10 ^3/uL (1.6-8.6); Nucleated Red Blood Cells % 0.2 %; Red Blood Cells 4.04 10^6/uL (4.0-5.20); Red Cell Distribution Width 13.4 % (11.8-14.3); White Blood Cell 3.5 10^3/uL (4.4-10.8)
[2022-11-03 08:52] LABS: Albumin 3.2 g/dL (3.4-5.0); Calcium 8.6 mg/dL (8.5-10.1); Potassium 3.7 mmol/L (3.5-5.1)
[2022-11-03 08:57] LABS: BUN/Creatinine Ratio 15.2; Bilirubin, Total 0.4 mg/dL (0.2-1.0); Total Protein 7.8 g/dL (6.4-8.2)
[2022-11-03] MEDS ORDERED: PANT40TA2 PO (10:50)
[2022-11-03] MEDS ORDERED: ONDA-144 PO (10:50)
[2022-11-03 12:38] VITALS: BP 140/82
== END 2022-11-03 12:39 | disposition home or self-care (01) ==
LOC: EDBD 07:47 → ER 07:47
DX: K29.70 Gastritis, unspecified, without bleeding (principal); I50.9 Heart failure, unspecified; E78.5 Hyperlipidemia, unspecified; F12.90 Cannabis use, unspecified, uncomplicated; Z90.49 Acquired absence of other specified parts of digestive tract; Z98.890 Other specified postprocedural states; Z86.73 Personal history of transient ischemic attack (TIA), and cerebral infarction without residual deficits; Z88.5 Allergy status to narcotic agent; Z91.040 Latex allergy status; Z88.0 Allergy status to penicillin; Z88.8 Allergy status to other drugs, medicaments and biological substances; Z79.899 Other long term (current) drug therapy; Z79.82 Long term (current) use of aspirin
CPT/HCPCS: 36415; 74176; 80053; 81001; 83690; 85025; 96361; 96374; 96375; 99285; C9113; J0780; J7030

== ENCOUNTER 2022-11-22 19:24 | Emergency (ER) | payer OTHER ==
[~2022-11-22] VITALS: Ht 185.4 cm; Wt 118.0 kg
[~2022-11-22 19:24] MED LIST changes: +ONDA-144 PO; +PANT40TA2 PO
[2022-11-22 20:49] LABS: Basophils # (auto) 0 10 ^3/uL (0-0.2); Basophils % (auto) 0.2 % (0.0-2.0); Eosinophils # (auto) 0 10 ^3/uL (0-0.8); Eosinophils % (auto) 0.8 % (0.0-7.0); Hematocrit 38.7 % (36.0-46.0); Hemoglobin 13.2 g/dL (12.2-16.2); Lymphocytes # (auto) 1.6 10 ^3/uL (0.4-5.4); Lymphocytes % (auto) 25.3 % (10.0-50.0); Mean Corpuscular Hemoglobin 30.9 pg (28.0-32.0); Mean Corpuscular Hgb Conc. 34.2 g/dL (32.0-36.0); Mean Corpuscular Volume 90.3 fL (80.0-100.0); Monocytes # (auto) 0.3 10 ^3/uL (0-1.3); Monocytes % (auto) 4.4 % (0.0-12.0); Neutrophils # (auto) 4.4 10 ^3/uL (1.6-8.6); Neutrophils % (auto) 69.3 % (37.0-80.0); Nucleated Red Blood Cells % 0.8 %; Red Blood Cells 4.29 10^6/uL (4.0-5.20); Red Cell Distribution Width 13.8 % (11.8-14.3); White Blood Cell 6.4 10^3/uL (4.4-10.8)
[2022-11-22 21:07] LABS: Albumin 3.1 g/dL (3.4-5.0); Calcium 8.7 mg/dL (8.5-10.1); Potassium 3.7 mmol/L (3.5-5.1)
[2022-11-22 21:13] LABS: Bilirubin, Total 0.4 mg/dL (0.2-1.0); Total Protein 7.4 g/dL (6.4-8.2)
[2022-11-23] MEDS ORDERED: MECLIZINE HCL 25 MG TAB PO ONE (01:30)
[2022-11-23] MEDS ORDERED: AZITTAB PO (02:36)
[2022-11-23 02:55] VITALS: BP 130/77
== END 2022-11-23 03:05 | disposition home or self-care (01) ==
LOC: EDBD 19:24 → ER 19:26
DX: J01.90 Acute sinusitis, unspecified (principal); F12.10 Cannabis abuse, uncomplicated; E78.5 Hyperlipidemia, unspecified; Z86.73 Personal history of transient ischemic attack (TIA), and cerebral infarction without residual deficits; Z90.49 Acquired absence of other specified parts of digestive tract
CPT/HCPCS: 36415; 70450; 80053; 84484; 85025; 93005; 99285; J8597

== ENCOUNTER 2023-01-05 20:00 | Emergency (ER) | payer OTHER ==
[~2023-01-05] VITALS: Ht 185.4 cm; Wt 118.2 kg
[~2023-01-05 20:00] MED LIST changes: +AZITTAB PO
[2023-01-05 20:50] LABS: Basophils # (auto) 0 10 ^3/uL (0-0.2); Basophils % (auto) 0.3 % (0.0-2.0); Eosinophils # (auto) 0.1 10 ^3/uL (0-0.8); Eosinophils % (auto) 1.3 % (0.0-7.0); Hematocrit 37.7 % (36.0-46.0); Hemoglobin 12.8 g/dL (12.2-16.2); Lymphocytes # (auto) 1.9 10 ^3/uL (0.4-5.4); Lymphocytes % (auto) 34.4 % (10.0-50.0); Mean Corpuscular Hemoglobin 30.4 pg (28.0-32.0); Mean Corpuscular Hgb Conc. 34.1 g/dL (32.0-36.0); Mean Corpuscular Volume 89.1 fL (80.0-100.0); Monocytes # (auto) 0.3 10 ^3/uL (0-1.3); Monocytes % (auto) 5.1 % (0.0-12.0); Neutrophils # (auto) 3.2 10 ^3/uL (1.6-8.6); Neutrophils % (auto) 58.9 % (37.0-80.0); Nucleated Red Blood Cells % 0.3 %; Red Blood Cells 4.23 10^6/uL (4.0-5.20); White Blood Cell 5.5 10^3/uL (4.4-10.8)
[2023-01-05 21:08] LABS: Albumin 3.2 g/dL (3.4-5.0); Calcium 9.1 mg/dL (8.5-10.1); Magnesium 2.1 mg/dL (1.6-2.6); Potassium 3.1 mmol/L (3.5-5.1)
[2023-01-05 21:12] LABS: BUN/Creatinine Ratio 9.5 (10.0-20.0); Bilirubin, Total 0.5 mg/dL (0.2-1.0); Total Protein 7.8 g/dL (6.4-8.2)
[2023-01-06 03:36] VITALS: BP 142/98
== END 2023-01-06 03:47 | disposition home or self-care (01) ==
LOC: ER 20:00 → EDBD 20:00 → ER 01-06 03:36
DX: R53.1 Weakness (principal); I11.0 Hypertensive heart disease with heart failure; I50.89 Other heart failure; E78.5 Hyperlipidemia, unspecified; F12.90 Cannabis use, unspecified, uncomplicated; Z88.5 Allergy status to narcotic agent; Z91.040 Latex allergy status; Z88.0 Allergy status to penicillin; Z88.8 Allergy status to other drugs, medicaments and biological substances; Z79.899 Other long term (current) drug therapy; Z79.82 Long term (current) use of aspirin; Z86.73 Personal history of transient ischemic attack (TIA), and cerebral infarction without residual deficits; Z90.49 Acquired absence of other specified parts of digestive tract; Z98.890 Other specified postprocedural states
CPT/HCPCS: 36415; 70450; 71045; 80053; 83735; 83880; 84484; 85025

== ENCOUNTER 2023-04-28 17:57 | Emergency (ER) | payer OTHER ==
[~2023-04-28] VITALS: Ht 180.3 cm; Wt 113.6 kg
[~2023-04-28 17:57] MED LIST changes: -LEVE500T32 PO; +LEVE500T40 PO; -OMEP-263 PO; +OMEP-448 PO
[2023-04-28 19:11] LABS: Basophils # (auto) 0 10 ^3/uL (0-0.2); Basophils % (auto) 0.2 % (0.0-2.0); Eosinophils # (auto) 0 10 ^3/uL (0-0.8); Eosinophils % (auto) 0.3 % (0.0-7.0); Hematocrit 39.4 % (36.0-46.0); Hemoglobin 13.4 g/dL (12.2-16.2); Lymphocytes % (auto) 33.7 % (10.0-50.0); Mean Corpuscular Hemoglobin 30.9 pg (28.0-32.0); Mean Corpuscular Volume 90.9 fL (80.0-100.0); Monocytes # (auto) 0.3 10 ^3/uL (0-1.3); Monocytes % (auto) 4.4 % (0.0-12.0); Neutrophils # (auto) 3.6 10 ^3/uL (1.6-8.6); Neutrophils % (auto) 61.4 % (37.0-80.0); Nucleated Red Blood Cells % 0.2 %; Red Blood Cells 4.33 10^6/uL (4.0-5.20); Red Cell Distribution Width 14.4 % (11.8-14.3); White Blood Cell 5.9 10^3/uL (4.4-10.8)
[2023-04-28 20:04] LABS: Albumin 3.7 g/dL (3.4-5.0); BUN/Creatinine Ratio 13.4 (10.0-20.0); Calcium 9.1 mg/dL (8.5-10.1); Potassium 3.6 mmol/L (3.5-5.1)
[2023-04-28 20:15] LABS: Bilirubin, Total 0.7 mg/dL (0.2-1.0); Total Protein 8.2 g/dL (6.4-8.2)
[2023-04-28] MEDS ORDERED: SODIUM CHLORIDE 0.9% 1,000 ML IV ONE (22:30)
[2023-04-28] MEDS ORDERED: ONDANSETRON HCL 4 MG/2 ML VIAL IV ONE (22:30)
[2023-04-28 23:18] LABS: Urine Bacteria FEW /hpf (None Seen); Urine Blood TRACE /uL (Negative); Urine Clarity HAZY (Clear); Urine Color Yellow (Yellow); Urine Mucus FEW (None Seen); Urine Protein, UAD 1+ (Negative); Urine Specific Gravity 1.035 (1.001-1.035); Urine WBC 10 /hpf (0 - 5); Urine pH 5.5 (5.0-8.0)
[2023-04-28] MEDS ORDERED: NITR-87 PO (23:40)
[2023-04-28 23:52] VITALS: BP 122/79; PULSE 73; RESP 19; O2SAT 99
== END 2023-04-28 23:53 | disposition home or self-care (01) ==
LOC: ER 17:57 → EDUNIT# 17:57 → EDBD 17:57 → ER 23:53
DX: N39.0 Urinary tract infection, site not specified (principal); E78.5 Hyperlipidemia, unspecified; F12.90 Cannabis use, unspecified, uncomplicated; I11.0 Hypertensive heart disease with heart failure; R10.2 Pelvic and perineal pain; Z90.49 Acquired absence of other specified parts of digestive tract; Z98.890 Other specified postprocedural states; Z88.5 Allergy status to narcotic agent; Z88.0 Allergy status to penicillin; Z88.8 Allergy status to other drugs, medicaments and biological substances; Z79.899 Other long term (current) drug therapy; Z86.73 Personal history of transient ischemic attack (TIA), and cerebral infarction without residual deficits; I50.89 Other heart failure
CPT/HCPCS: 36415; 70450; 71045; 80053; 81001; 81025; 83880; 84702; 85025; 96361; 96374; 99285; J2405; J7030

== ENCOUNTER 2023-10-08 13:21 | Emergency (ER) | payer OTHER ==
[~2023-10-08] VITALS: Ht 175.3 cm; Wt 122.0 kg
[~2023-10-08 13:21] MED LIST changes: +NITR-87 PO
[2023-10-08 14:08] LABS: Urine Bacteria FEW /hpf (None Seen); Urine Blood 2+ /uL (Negative); Urine Clarity HAZY (Clear); Urine Color Yellow (Yellow); Urine Mucus FEW (None Seen); Urine Protein, UAD 1+ (Negative); Urine Specific Gravity 1.024 (1.001-1.035); Urine WBC 38 /hpf (0 - 5)
[2023-10-08 14:46] VITALS: BP 144/83; PULSE 68; RESP 18; TEMP 98; O2SAT 100
[2023-10-08] MEDS ORDERED: KETOROLAC TROMETH 60MG/2ML VIAL IM ONE (15:15)
[2023-10-08] MEDS ORDERED: cefTRIAXone SOD 1,000 MG VL IM ONE (15:15)
[2023-10-08] MEDS ORDERED: ONDANSETRON ODT 4 MG TAB PO ONE (15:30)
[2023-10-08] MEDS ORDERED: IBUP-1456 PO (16:02)
[2023-10-08] MEDS ORDERED: BACDST PO (16:02)
== END 2023-10-08 16:25 | disposition home or self-care (01) ==
LOC: ER 13:21 → EDBD 13:21 → ER 16:24
DX: N39.0 Urinary tract infection, site not specified (principal); I10 Essential (primary) hypertension; E78.5 Hyperlipidemia, unspecified; Z86.73 Personal history of transient ischemic attack (TIA), and cerebral infarction without residual deficits; Z90.49 Acquired absence of other specified parts of digestive tract; Z79.82 Long term (current) use of aspirin; Z79.2 Long term (current) use of antibiotics; Z79.899 Other long term (current) drug therapy; Z88.5 Allergy status to narcotic agent; Z88.0 Allergy status to penicillin; Z88.8 Allergy status to other drugs, medicaments and biological substances
CPT/HCPCS: 81001; 96372; 99284; J0696; J1885; Q0162

== ENCOUNTER 2024-05-28 16:43 | Emergency (ER) | payer OTHER ==
[~2024-05-28] VITALS: Ht 165.1 cm; Wt 95.0 kg
[~2024-05-28 16:43] MED LIST changes: +BACDST PO; +IBUP-1456 PO
[2024-05-28 18:21] VITALS: BP 122/72; PULSE 82; RESP 16; TEMP 98.2; O2SAT 100
[2024-05-28] MEDS: FAMOTIDINE 20 MG TAB PO ONE (18:33)
[2024-05-28] MEDS: DexAMETHasone SOD PHOS 10MG/1ML VIAL INJ IM ONE (18:34)
[2024-05-28] MEDS ORDERED: EPIN0.3I24 IJ (21:02)
== END 2024-05-28 21:22 | disposition home or self-care (01) ==
LOC: EDBD 16:43 → ER 16:43
DX: T78.49XA Other allergy, initial encounter (principal); R20.0 Anesthesia of skin; I10 Essential (primary) hypertension; E78.5 Hyperlipidemia, unspecified; F41.9 Anxiety disorder, unspecified; F15.90 Other stimulant use, unspecified, uncomplicated; Z86.73 Personal history of transient ischemic attack (TIA), and cerebral infarction without residual deficits; Z98.890 Other specified postprocedural states; Z88.0 Allergy status to penicillin; Z88.5 Allergy status to narcotic agent; Z88.6 Allergy status to analgesic agent; Z88.8 Allergy status to other drugs, medicaments and biological substances; Z91.041 Radiographic dye allergy status; Z79.899 Other long term (current) drug therapy; X58.XXXA Exposure to other specified factors, initial encounter
CPT/HCPCS: 70450; 96372; 99285; J1100

== ENCOUNTER 2024-07-03 17:05 | Emergency (ER) | payer OTHER ==
[~2024-07-03] VITALS: Ht 180.3 cm; Wt 123.0 kg
[~2024-07-03 17:05] MED LIST changes: +EPIN0.3I24 IJ
[2024-07-03] MEDS ORDERED: IBUP-1455 PO (19:28)
[2024-07-03] MEDS ORDERED: CYCL-837 PO (19:28)
[2024-07-03 20:00] VITALS: BP 134/86; PULSE 99; RESP 16; TEMP 98.5; O2SAT 99
[2024-07-03] MEDS: ONDANSETRON ODT 4 MG TAB PO ONE (20:11)
[2024-07-03] MEDS: methylPREDNISolone SOD SUCC 125 MG/2 ML VL IM ONE (20:11)
[2024-07-03] MEDS: KETOROLAC TROMETH 30 MG/ML 1ML VIAL IM ONE (20:12)
== END 2024-07-03 20:28 | disposition home or self-care (01) ==
LOC: ER 17:06
DX: S33.5XXA Sprain of ligaments of lumbar spine, initial encounter (principal); E78.5 Hyperlipidemia, unspecified; F12.90 Cannabis use, unspecified, uncomplicated; I10 Essential (primary) hypertension; Z88.0 Allergy status to penicillin; Z88.5 Allergy status to narcotic agent; Z88.8 Allergy status to other drugs, medicaments and biological substances; Z79.899 Other long term (current) drug therapy; Z86.73 Personal history of transient ischemic attack (TIA), and cerebral infarction without residual deficits; Z90.49 Acquired absence of other specified parts of digestive tract; Z98.890 Other specified postprocedural states; X58.XXXA Exposure to other specified factors, initial encounter; Y93.89 Activity, other specified; Y92.89 Other specified places as the place of occurrence of the external cause; Y99.8 Other external cause status
CPT/HCPCS: 96372; 99284; J1885; J2919; Q0162

== ENCOUNTER 2024-11-28 16:01 | Emergency (ER) | payer OTHER ==
[~2024-11-28] VITALS: Ht 180.3 cm; Wt 126.0 kg
[~2024-11-28 16:01] MED LIST changes: +CYCL-837 PO; +IBUP-1455 PO
[2024-11-28 17:30] LABS: Basophils # (auto) 0 10 ^3/uL (0-0.2); Basophils % (auto) 0.3 % (0.0-2.0); Eosinophils # (auto) 0.1 10 ^3/uL (0-0.8); Eosinophils % (auto) 1.3 % (0.0-7.0); Hematocrit 39.9 % (36.0-46.0); Hemoglobin 13.7 g/dL (12.2-16.2); Lymphocytes # (auto) 1.5 10 ^3/uL (0.4-5.4); Lymphocytes % (auto) 31.6 % (10.0-50.0); Mean Corpuscular Hemoglobin 32.9 pg (28.0-32.0); Mean Corpuscular Hgb Conc. 34.4 g/dL (32.0-36.0); Mean Corpuscular Volume 95.8 fL (80.0-100.0); Monocytes # (auto) 0.3 10 ^3/uL (0-1.3); Monocytes % (auto) 5.2 % (0.0-12.0); Neutrophils % (auto) 61.6 % (37.0-80.0); Nucleated Red Blood Cells % 0.1 %; Platelet Count (auto) 169 10^3/uL (140-450); Red Blood Cells 4.17 10^6/uL (4.0-5.20); Red Cell Distribution Width 13.4 % (11.8-14.3); White Blood Cell 4.9 10^3/uL (4.4-10.8)
[2024-11-28 17:43] LABS: Alanine Aminotransferase 19 U/L (7-40); Albumin 4.3 g/dL (3.2-4.8); Alkaline Phosphatase 64 U/L (46-116); Anion Gap 7 (5-15); BUN/Creatinine Ratio 10.6 (10.0-20.0); Carbon Dioxide 26 mmol/L (20-31); Glucose 97 mg/dL (74-106); Lipase 28 U/L (12-53); Sodium 141 mmol/L (136-145); Total Protein 7.4 g/dL (5.7-8.2)
[2024-11-28 17:44] LABS: Bilirubin, Total 0.5 mg/dL (0.2-1.0)
--- NOTE | 2024-11-28 18:09 | DVH ---
Exam: CT CT AB PEL WO CON-NO ORAL OR IV History: vomiting Comparison Study: CT ABD PELVIS WO CONTRAST on DOS: 11/03/22, CT ABD PELVIS WO CONTRAST on DOS: Technique: Multidetector spiral CT of the abdomen and pelvis was performed from lung bases to pubic symphysis. Imaging was performed without IV contrast. Axial, coronal and sagittal multiplanar reform ats were obtained from the axial data set by the technologist. Radiation dose : Abdomen/Pelvis: CTDIvol 23.95 mGy, DLP 1311.18 mGy*cm. Findings: Evaluation of solid organs is limited due to lack of intravenous contrast use. Lung Bases: No acute or significant lung base finding. Normal heart size. No pleural or pericardial effusion. Liver: The liver is normal in size. No focal lesions. Gallbladder and biliary Tree: Gallbladder is surgically absent. Spleen: Unremarkable Pancreas: The pancreas is grossly normal in appearance. Adrenal Glands: Unremarkable Kidneys: Kidneys are grossly normal without calculi or hydronephrosis. Bladder: Grossly unremarkable for degree of distention. Bowel: The stomach is grossly normal in appearance. Small bowel and colon are normal in caliber and d istribution. The appendix is not visualized; however, no secondary findings of acute appendicitis miguel ntified. Ascites: Absent Lymphadenopathy: Subcentimeter mesenteric lymph nodes are noted. Abdominal wall and Mesentery: Unremarkable. Vasculature: The visualized abdominal aorta is normal in size and caliber. Evaluation of abdominal a nd pelvic vessels is limited due to lack of intravenous contrast. Pelvic Organs: Unremarkable Musculoskeletal: No aggressive focal bony lesions, acute fractures or dislocation. IMPRESSION: 1. No acute abdominal or pelvic findings. Subcentimeter mesenteric lymph nodes are nonspecific and ca n be seen with infectious/inflammatory process. Clinical correlation and continued follow-up is recom mended. Radiation optimization: All CT scans at this facility use at least one of these dose optimization tania hniques: Automated exposure control mA and/or kV adjustment per patient size (includes targeted exams where dose is matched to clinical indication) or iterative reconstruction. HS:Y
[2024-11-28 18:16] LABS: Aspartate Aminotransferase 9 U/L (13-40); Blood Urea Nitrogen 9 mg/dL (9-23); Chloride 108 mmol/L (98-107); Potassium 3.3 mmol/L (3.5-5.1)
[2024-11-28] MEDS ORDERED: OMEP-448 PO (19:20)
[2024-11-28] MEDS ORDERED: ZOFR4T PO (19:20)
--- NOTE | 2024-11-28 19:21 | ED.PDOC ---
GI ASSESSMENT HPI Comments Patient complaining of nausea vomiting abdominal pain. Patient states she was has been having vomiting with coffee-ground emesis. Denies any prior history of GI bleed or stomach ulcers. States the nausea vomiting has been going on for x1 week but today got much worse so she called 911. States she was able to eat breakfast earlier in the day small amount. Nothing makes it better, eating does not make the pain worse Chief Complaint: Abdominal Pain Time Seen by MD: 16:09 Primary Care Provider: JULY Reviewed Notes: Nurses Notes Allergies: Coded Allergies: Codeine (Verified Allergy, Severe, 03/29/22) Iodine (Verified Allergy, Severe, 03/29/22) Morphine (Verified Allergy, Severe, 03/29/22) Penicillins (Verified Allergy, Severe, 03/29/22) Valproic Acid (Verified Allergy, Severe, 03/29/22) Red Dye #40 (Allura Red) (Verified Allergy, Unknown, 05/28/24) Home Meds Active Scripts Ibuprofen Micronized (Ibuprofen) 800 Mg Tab, 800 MG PO TID PRN, #40 TAB Prov:DAVID OMALLEY 07/03/24 Cyclobenzaprine Hcl (Cyclobenzaprine Hcl) 5 Mg Tab, 1 TAB PO TID, #30 TAB Prov:DAVID OMALLEY 07/03/24 Epinephrine (Epinephrine) 0.3 Mg/0.3 Ml Inj, 0.3 MG IJ ONCE, #1 INJ Prov:WILFRID RHODES PAC 05/28/24 Ibuprofen (Ibuprofen) 800 Mg Tab, 1 TAB PO TID, #24 TAB Prov:ANA MUHAMMAD 10/08/23 Sulfamethoxazole W/Trimethopri (Bactrim Ds Tablet) 1 Tab Tb, 1 TAB PO BID, #20 TAB Prov:ANA MUHAMMAD PA 10/08/23 Nitrofurantoin Monohydrate Mac (Macrobid) 100 Mg Cap, 100 MG PO BID for 7 Days, #14 CAP Prov:DAVID OMALLEY 04/28/23 Azithromycin (Zithromax Z-Gilberto) 250 Mg Tab, 250 MG PO DAILY for 5 Days, #5 TAB Prov:STARLA TAPIA NP 11/23/22 Ondansetron (Zofran) 4 Mg Tab, 1 TAB PO Q6HR, #20 TAB Prov:FERNANDEZ GIANG MD 11/03/22 Pantoprazole Sodium Sesquihydr (Protonix) 40 Mg Tab, 40 MG PO DAILY, #30 TAB Prov:FERNANDEZ GIANG MD 11/03/22 Famotidine (Pepcid AC) 20 Mg Tab, 20 MG PO QHSP PRN for 30 Days, #30 TAB Prov:SUSY RODARTE MD 05/08/22 Levetiracetam (Keppra) 500 Mg Tab, 500 MG PO DAILY for 90 Days, #90 TAB 2 Refills Prov:SUSY RODARTE MD 05/07/22 Spironolactone (Aldactone) 25 Mg Tab, 1 TAB PO DAILY PRN for 5 Days, #5 TAB 1 Refill Prov:DAVID LUNDBERG MD 03/07/22 Furosemide (Lasix) 20 Mg Tb, 1 TAB PO DAILY for 5 Days, #5 TAB 1 Refill Prov:DAVID LUNDBERG MD 03/07/22 Ciprofloxacin Hcl (Cipro) 500 Mg Tab, 1 TAB PO BID for 7 Days, #14 TAB Prov:DAVID LUNDBERG MD 03/07/22 Omeprazole (Omeprazole Dr) 40 Mg Cap, 40 MG PO DAILY for 10 Days, #10 CAP Prov:DAVID LUNDBERG MD 03/07/22 Metoclopramide Hcl (Reglan) 10 Mg Tab, 10 MG PO BID for 5 Days, #10 TAB Prov:DAVID LUNDBERG MD 03/07/22 Levofloxacin (Levaquin) 500 Mg Tab, 500 MG PO DAILY, #7 TAB Prov:MARTHA GARCIA MD 04/02/21 Reported Medications Multiple Vitamins W/ Minerals (Womens Multi Gummies) 1 Chw Chw, 1 CHW PO DAILY, TAB.CHEW 04/01/21 Zinc Gluconate (ZINC) Unknown Strength Tab, PO EOD 1 TAB PO EVERY OTHER DAY PER PATIENT (PATIENT REPORTS STRENGTH 250 MG) 04/01/21 Cyanocobalamin (VITAMIN B 12) Unknown Strength Cristy, PO DAILY 1 TAB DAILY PER PATIENT 04/01/21 Ascorbic Acid (Vitamin C) 1,000 Mg Tab, 1000 MG PO DAILY 1000 MG TAB DAILY PER PATIENT 04/01/21 Acetaminophen (Tylenol Extra Strength) 500 Mg Tab, 2 TAB PO Q4HPRN, TAB EXTRA STRENGTH TYLENOL 2 TABS PO Q4HPRN PER PATIENT 04/01/21 Aspirin (Aspir-81) 81 Mg Tab, 1 TAB PO DAILY 04/01/21 Emtricitabine/Rilpivirine/Teno (Odefsey 200-25-25 mg) 1 Tab Tab, 1 TAB PO DAILY 1 TABLET DAILY PER PATIENT 04/01/21 Levetiracetam (Levetiracetam) 500 Mg Tab, 1 TAB PO BID 04/01/21 Information Source: Patient Mode of Arrival: EMS Past Medical History PAST MEDICAL HISTORY: Anxiety, CVA, High Lipids, HIV, HTN, Seizures, TIA, UTI'S Surgical History: Cholecystectomy, , Hernia 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 Pertinent [employer] History Family History Family History: Family hx of DM, Family hx of Cancer, Family hx of stroke Social History Smoker: Non-Smoker Alcohol: Occasionally Drugs: Marijuana Lives In: Home Constitutional: denies: chills, diaphoresis, fatigue, fever, malaise, sweats, weakness, others EENTM: denies: blurred vision, double vision, ear bleeding, ear discharge, ear drainage, ear pain, ear ringing, eye pain, eye redness, hearing loss, mouth pain , mouth swelling, nasal discharge, nose bleeding, nose congestion, nose pain, photophobia, tearing, throat pain, throat swelling, voice changes, others Respiratory: denies: cough, hemoptysis, orthopnea, SOB at rest, shortness of breath, SOB with excertion, stridor, wheezing, others Cardiovascular: denies: chest pain, dizzy spells, diaphoresis, Dyspnea on exertion, edema, irregular heart beat, left arm pain, lightheadedness, palpitations, PND, syncope, others Gastrointestinal: reports: abdominal pain, hematemesis, nausea, vomiting; denies: abdomen distended, blood streaked bowels, constipated, diarrhea, dysphagia, difficulty swallowing, melena, poor appetite, poor fluid intake, rectal bleeding, rectal pain, others Genitourinary: denies: abnormal vagina bleeding, burning, dyspareunia, dysuria, flank pain, frequency, hematuria, incontinence, pain, , vagina discharge, urgency, others Neurological: denies: dizziness, fainting, headache, left sided numbness, left sided weakness, numbness, paresthesia, pre-existing deficit, right sided numbness, right sided weakness, seizure, speech problems, tingling, tremors, weakness, others Musculoskeletal: denies: back pain, gout, joint pain, joint swelling, muscle pain, muscle stiffness, neck pain, others Integumetry: denies: bruises, change in color, change in hair/nails, dryness, laceration, lesions, lumps, rash, wounds, others Allergic/Immunocompromised: denies: Difficulty Healing, Frequent Infections, Hives, Itching, others Physical Exam General Appearance: No Apparent Distress, Normal HEENT: Normal ENT Inspection, Pharynx Normal, TMs Normal Neck: Full Range of Motion, Non-Tender, Normal, Normal Inspection Respiratory: Chest Non-Tender, Lungs Clear, No Accessory Muscle Use, No Respiratory Distress, Normal Breath Sounds Cardiovascular: No Edema, No JVD, No Murmur, No Gallop, Normal Peripheral Pulses, Regular Rate/Rhythm Breast Exam: Deferred Gastrointestinal: No Organomegaly, Non Tender, No Pulsatile Mass, Normal Bowel Sounds, Soft Genitalia: Deferred Pelvic: Deferred Rectal: Deferred Extremities: No calf tenderness, Normal capillary refill, Normal inspection, Normal range of motion, Non-tender, No pedal edema Musculoskeletal : Apperance: Normal Neurologic: Alert, car washer II-XII nml as Tested, No Motor Deficits, Normal Affect, Normal Mood, No Sensory Deficits Cerebellar Function: Normal Reflexes: Normal Skin: Dry, Normal Color, Warm Lymphatic: No Adenopathy Was a procedure done? Was a procedure done?: No GI differential Dx Differential Diagnosis: Appendicitis, Constipation, Esophageal rupture, Esophagitis, Gastritis/PUD, Gastroenteritis, GI hemorrhage, Hernia X-Ray, Labs, Meds, VS Vital Signs Date Time Temp Pulse Resp B/P (MAP) Pulse Ox O2 Delivery O2 Flow Rate FiO2 11/28/24 16:21 98.3 93 16 133/75 (94) 97 98.3 Lab Test 11/28/24 17:00 Range/Units White Blood Count 4.9 4.4-10.8 10^3/uL Red Blood Count 4.17 4.0-5.20 10^6/uL Hemoglobin 13.7 12.2-16.2 g/dL Hematocrit 39.9 36.0-46.0 % Mean Corpuscular Volume 95.8 80.0-100.0 fL Mean Corpuscular Hemoglobin 32.9 H 28.0-32.0 pg Mean Corpuscular Hemoglobin Concent 34.4 32.0-36.0 g/dL Red Cell Distribution Width 13.4 11.8-14.3 % Platelet Count 169 140-450 10^3/uL Mean Platelet Volume 8.9 6.9-10.8 fL Neutrophils (%) (Auto) 61.6 37.0-80.0 % Lymphocytes (%) (Auto) 31.6 10.0-50.0 % Monocytes (%) (Auto) 5.2 0.0-12.0 % Eosinophils (%) (Auto) 1.3 0.0-7.0 % Basophils (%) (Auto) 0.3 0.0-2.0 % Neutrophils # (Auto) 3.0 1.6-8.6 10 ^3/uL Lymphocytes # (Auto) 1.5 0.4-5.4 10 ^3/uL Monocytes # (Auto) 0.3 0-1.3 10 ^3/uL Eosinophils # (Auto) 0.1 0-0.8 10 ^3/uL Basophils # (Auto) 0 0-0.2 10 ^3/uL Nucleated Red Blood Cells 0.1 % Sodium Level 141 136-145 mmol/L Potassium Level 3.3 L 3.5-5.1 mmol/L Chloride Level 108 H 98-107 mmol/L Carbon Dioxide Level 26 20-31 mmol/L Anion Gap 7 5-15 Blood Urea Nitrogen 9 9-23 mg/dL Creatinine 0.85 0.550-1.02 mg/dL Glomerular Filtration Rate Calc 89 >90 mL/min BUN/Creatinine Ratio 10.6 10.0-20.0 Serum Glucose 97 74-106 mg/dL Calcium Level 10.0 8.7-10.4 mg/dL Total Bilirubin 0.5 0.2-1.0 mg/dL Aspartate Amino Transferase (AST) 9 L 13-40 U/L Alanine Aminotransferase (ALT) 19 7-40 U/L Alkaline Phosphatase 64 46-116 U/L Total Protein 7.4 5.7-8.2 g/dL Albumin 4.3 3.2-4.8 g/dL Lipase 28 12-53 U/L X-Ray, Labs, Meds, VS Comment Imaging: X-rays and CT scans were reviewed and interpreted by this provider, imaging shows no fractures and no pathological disease. Pending radiology review. Laboratory: Labs reviewed and interpreted by this provider. No significant abnormalities noted. Patient has prior medical visits reviewed. Med reconciliation performed Vital signs reviewed Time of 1ST Reevaluation: 19:21 Reevaluation 1ST: Improved Patient Education/Counseling: Diagnosis, Treatment, Need For Follow Up (Patient advised to follow-up in the emergency room in the next 24 to 48 hours if symptoms do not improve. Advised follow-up with PCP in the next 3 to 5 days. Patient verbalized understanding. ) Family Education/Counseling: Diagnosis, Treatment Departure 1 Departure Time of Disposition: 19:19 Impression: Primary Impression: Gastritis Qualified Codes: K29.70 - Gastritis, unspecified, without bleeding Additional Impression: Peptic ulcer with perforation and obstruction Disposition: HOME / SELF CARE / HOMELESS Condition: Fair e-Prescriptions Omeprazole (Omeprazole Dr) 40 Mg Cap 40 MG PO DAILY for 30 Days, #30 CAP Prov: DAVID OMALLEY 11/28/24 Ondansetron Odt 4MG Tab (ZOFRAN PO) 4 Mg Tb 4 MG PO TID PRN, #20 TAB ODT TAB-DISSOLVE IN MOUTH, THEN SWALLOW Prov: DAVID OMALLEY 11/28/24 Discharged With: Self Critical Care Note Critical Care Time?: No Stability Stability form required: No Heart Score Heart Score: Heart Score Response (Comments) Value History N/A 0 EKG N/A 0 Age N/A 0 Risk Factors N/A 0 Troponin N/A 0 Total 0 DAVID OMALLEY Nov 28, 2024 19:21
[2024-11-28 23:00] VITALS: BP 128/75; PULSE 82; RESP 18; TEMP 98.5; O2SAT 97
[2024-11-28] MEDS: ONDANSETRON ODT 4 MG TAB PO ONE (23:13)
[2024-11-28] MEDS: MAALOX PLUS or MAALOX 30 ML PO ONE (23:13)
[2024-11-28] MEDS: LIDOCAINE VISCOUS 2% 15ML UD MT ONE (23:14)
== END 2024-11-28 23:31 | disposition home or self-care (01) ==
LOC: ER 16:01 → EDBD 16:01 → ER 23:20
DX: K29.70 Gastritis, unspecified, without bleeding (principal); K27.6 Chronic or unspecified peptic ulcer, site unspecified, with both hemorrhage and perforation; F41.9 Anxiety disorder, unspecified; Z86.73 Personal history of transient ischemic attack (TIA), and cerebral infarction without residual deficits; E78.5 Hyperlipidemia, unspecified; I10 Essential (primary) hypertension; F12.90 Cannabis use, unspecified, uncomplicated; Z88.0 Allergy status to penicillin; Z98.890 Other specified postprocedural states; Z79.899 Other long term (current) drug therapy; Z79.82 Long term (current) use of aspirin; Z88.5 Allergy status to narcotic agent; Z88.8 Allergy status to other drugs, medicaments and biological substances; Z90.49 Acquired absence of other specified parts of digestive tract; Z91.041 Radiographic dye allergy status; Z79.1 Long term (current) use of non-steroidal anti-inflammatories (NSAID); Z91.040 Latex allergy status; Z88.1 Allergy status to other antibiotic agents
CPT/HCPCS: 36415; 74176; 80053; 83690; 85025; 99284; Q0162

== ENCOUNTER 2024-12-06 15:33 | Emergency (ER) | payer OTHER ==
[~2024-12-06] VITALS: Ht 180.3 cm; Wt 128.0 kg
[~2024-12-06 15:33] MED LIST changes: +ZOFR4T PO
[2024-12-06] MEDS ORDERED: SODIUM CHLORIDE 0.9% 1,000 ML IV ONE (15:45)
--- NOTE | 2024-12-06 16:06 | DVH ---
CHEST RADIOGRAPH Indication: sob Technique: Single frontal view of the chest was obtained Comparison: XY CHEST PORTABLE on DOS: 04/24/24, XY CHEST XRAY 1 VIEW on DOS: 04/28/23 FINDINGS: Lines and Tubes: None Lungs: No focal consolidation. Pleura: No effusion.No pneumothorax. Cardiomediastinal contours: Unremarkable Pulmonary vasculature: Within normal limits. Bones: There is dextroconvex curvature of the thoracic spine. There is no acute osseous abnormality. IMPRESSION: 1. No acute cardiopulmonary disease. HS:Y
--- NOTE | 2024-12-06 16:09 | ED.PDOC ---
History of Present Illness HPI Comments 39F BIBA w/ prior Hx of Cholecystectomy and C-sectionx2 associated to the c/c of a GI bleed. EMS report the pt being picked up from a health clinic and having GI bleeding of black stools since 11/28/24 w/ emesis that looks like coffee grounds which are on and off. Pt notes that she might have a possible GI ulcer. PMHx of SZ, CHF, GI Ulcer, TIA, HIV, HTN, UTI, Anxiety, CVA and High Lipids. SHx of Cholecystectomy, Hernia Repair and a x2. Denies chills, fever, SOB, CP or no other associated symptoms, modifiers, recent injuries or sick contacts at this time. Chief Complaint: GI Bleed Time Seen by MD: 15:40 Primary Care Provider: JULY Reviewed Notes: Nurses Notes, Checker/Stocker Notes, Medications, Allergies Allergies: Coded Allergies: Codeine (Verified Allergy, Severe, 03/29/22) Hydromorphone (Verified Allergy, Severe, 12/06/24) Iodine (Verified Allergy, Severe, 03/29/22) Morphine (Verified Allergy, Severe, 03/29/22) Penicillins (Verified Allergy, Severe, 03/29/22) Valproic Acid (Verified Allergy, Severe, 03/29/22) Red Dye #40 (Allura Red) (Verified Allergy, Unknown, 05/28/24) Home Meds Active Scripts Ondansetron Odt 4MG Tab (ZOFRAN PO) 4 Mg Tb, 4 MG PO DAILY for 10 Days, #10 TAB ODT TAB-DISSOLVE IN MOUTH, THEN SWALLOW Prov:FAYE MOONEY MD 12/06/24 Pantoprazole Sodium Sesquihydr (Protonix) 40 Mg Tab, 40 MG PO DAILY for 10 Days, #10 TAB Prov:FAYE MOONEY MD 12/06/24 Omeprazole (Omeprazole Dr) 40 Mg Cap, 40 MG PO DAILY for 30 Days, #30 CAP Prov:DAVID OMALLEY 11/28/24 Ondansetron Odt 4MG Tab (ZOFRAN PO) 4 Mg Tb, 4 MG PO TID PRN, #20 TAB ODT TAB-DISSOLVE IN MOUTH, THEN SWALLOW Prov:DAVID OMALLEY 11/28/24 Ibuprofen Micronized (Ibuprofen) 800 Mg Tab, 800 MG PO TID PRN, #40 TAB Prov:DAVID OMALLEYP 07/03/24 Cyclobenzaprine Hcl (Cyclobenzaprine Hcl) 5 Mg Tab, 1 TAB PO TID, #30 TAB Prov:DAVID OMALLEY 07/03/24 Epinephrine (Epinephrine) 0.3 Mg/0.3 Ml Inj, 0.3 MG IJ ONCE, #1 INJ Prov:WILFRID RHODES PAC 05/28/24 Ibuprofen (Ibuprofen) 800 Mg Tab, 1 TAB PO TID, #24 TAB Prov:ANA MUHAMMAD 10/08/23 Sulfamethoxazole W/Trimethopri (Bactrim Ds Tablet) 1 Tab Tb, 1 TAB PO BID, #20 TAB Prov:ANA MUHAMMAD 10/08/23 Nitrofurantoin Monohydrate Mac (Macrobid) 100 Mg Cap, 100 MG PO BID for 7 Days, #14 CAP Prov:DAVID OMALLEY [facility] 04/28/23 Azithromycin (Zithromax Z-Gilberto) 250 Mg Tab, 250 MG PO DAILY for 5 Days, #5 TAB Prov:STARLA TAPIA NP 11/23/22 Ondansetron (Zofran) 4 Mg Tab, 1 TAB PO Q6HR, #20 TAB Prov:FERNANDEZ GIANG MD 11/03/22 Pantoprazole Sodium Sesquihydr (Protonix) 40 Mg Tab, 40 MG PO DAILY, #30 TAB Prov:FERNANDEZ GIANG MD 11/03/22 Famotidine (Pepcid AC) 20 Mg Tab, 20 MG PO QHSP PRN for 30 Days, #30 TAB Prov:SUSY RODARTE MD 05/08/22 Levetiracetam (Keppra) 500 Mg Tab, 500 MG PO DAILY for 90 Days, #90 TAB 2 Refills Prov:SUSY RODARTE MD 05/07/22 Spironolactone (Aldactone) 25 Mg Tab, 1 TAB PO DAILY PRN for 5 Days, #5 TAB 1 Refill Prov:DAVID LUNDBERG MD 03/07/22 Furosemide (Lasix) 20 Mg Tb, 1 TAB PO DAILY for 5 Days, #5 TAB 1 Refill Prov:DAVID LUNDBERG MD 03/07/22 Ciprofloxacin Hcl (Cipro) 500 Mg Tab, 1 TAB PO BID for 7 Days, #14 TAB Prov:DAVID LUNDBERG MD 03/07/22 Omeprazole (Omeprazole Dr) 40 Mg Cap, 40 MG PO DAILY for 10 Days, #10 CAP Prov:DAVID LUNDBERG MD 03/07/22 Metoclopramide Hcl (Reglan) 10 Mg Tab, 10 MG PO BID for 5 Days, #10 TAB Prov:DAVID LUNDBERG MD 03/07/22 Levofloxacin (Levaquin) 500 Mg Tab, 500 MG PO DAILY, #7 TAB Prov:MARTHA GARCIA MD 04/02/21 Reported Medications Multiple Vitamins W/ Minerals (Womens Multi Gummies) 1 Chw Chw, 1 CHW PO DAILY, TAB.CHEW 04/01/21 Zinc Gluconate (ZINC) Unknown Strength Tab, PO EOD 1 TAB PO EVERY OTHER DAY PER PATIENT (PATIENT REPORTS STRENGTH 250 MG) 04/01/21 Cyanocobalamin (VITAMIN B 12) Unknown Strength Cristy, PO DAILY 1 TAB DAILY PER PATIENT 04/01/21 Ascorbic Acid (Vitamin C) 1,000 Mg Tab, 1000 MG PO DAILY 1000 MG TAB DAILY PER PATIENT 04/01/21 Acetaminophen (Tylenol Extra Strength) 500 Mg Tab, 2 TAB PO Q4HPRN, TAB EXTRA STRENGTH TYLENOL 2 TABS PO Q4HPRN PER PATIENT 04/01/21 Aspirin (Aspir-81) 81 Mg Tab, 1 TAB PO DAILY 04/01/21 Emtricitabine/Rilpivirine/Teno (Odefsey 200-25-25 mg) 1 Tab Tab, 1 TAB PO DAILY 1 TABLET DAILY PER PATIENT 04/01/21 Levetiracetam (Levetiracetam) 500 Mg Tab, 1 TAB PO BID 04/01/21 Information Source: Patient, Emergency Med Personnel Mode of Arrival: EMS Severity: Moderate Timing: Days Duration: Since onset, Days Prehospital treatment: None Past Medical History PAST MEDICAL HISTORY: Anxiety, CHF, CVA, High Lipids, HIV, HTN, Seizures, TIA, UTI'S Past Medical History (Other): GI Ulcers Surgical History: Cholecystectomy, , Hernia Repair [employer]FF[employer]ING [employer] 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 Family History Family History: Reviewed,noncontributory to illness, Unknown Social History Smoker: Non-Smoker Alcohol: Denies ETOH Use Drugs: Denies Drug Use Lives In: Home Constitutional: denies: chills, diaphoresis, fatigue, fever, malaise, sweats, weakness, others EENTM: denies: blurred vision, double vision, ear bleeding, ear discharge, ear drainage, ear pain, ear ringing, eye pain, eye redness, hearing loss, mouth pain, mouth swelling, nasal discharge, nose bleeding, nose congestion, nose pain, photophobia, tearing, throat pain, throat swelling, voice changes, others Respiratory: denies: cough, hemoptysis, orthopnea, SOB at rest, shortness of breath, SOB with excertion, stridor, wheezing, others Cardiovascular: denies: chest pain, dizzy spells, diaphoresis, Dyspnea on exertion, edema, irregular heart beat, left arm pain, lightheadedness, palpitations, PND, syncope, others Gastrointestinal: reports: rectal bleeding; denies: abdomen distended, abdominal pain, blood streaked bowels, constipated, diarrhea, dysphagia, difficulty swallowing, hematemesis, melena, nausea, poor appetite, poor fluid intake, rectal pain, vomiting, others Genitourinary: denies: abnormal vagina bleeding, burning, dyspareunia, dysuria, flank pain, frequency, hematuria, incontinence, pain, , vagina discharge, urgency, others Neurological: denies: dizziness, fainting, headache, left sided numbness, left sided weakness, numbness, paresthesia, pre-existing deficit, right sided numbness, right sided weakness, seizure, speech problems, tingling, tremors, weakness, others Musculoskeletal: denies: back pain, gout, joint pain, joint swelling, muscle pain, muscle stiffness, neck pain, others Integumetry: denies: bruises, change in color, change in hair/nails, dryness, laceration, lesions, lumps, rash, wounds, others Allergic/Immunocompromised: denies: Difficulty Healing, Frequent Infections, Hives, Itching, others Hematologic/Lymphatic: denies: anemia, blood clots, easy bleeding, easy bruising, swollen glands, others Endocrine: denies: excessive hunger, excessive sweating, excessive thirst, excessive urination, flushing, intolerance to cold, intolerance to heat, unexplained weight gain, unexplained weight loss, others Psychiatric: denies: anxiety, bipolar disorder, depression, hopeless, panic disorder, schizophrenia, sleepless, suicidal, others All Other Systems: Reviewed and Negative Physical Exam General Appearance: Moderate Distress, Normal HEENT: Normal ENT Inspection, Pharynx Normal, TMs Normal Neck: Full Range of Motion, Non-Tender, Normal, Normal Inspection Respiratory: Chest Non-Tender, Lungs Clear, No Accessory Muscle Use, No Respiratory Distress, Normal Breath Sounds Cardiovascular: No Edema, No JVD, No Murmur, No Gallop, Normal Peripheral Pulses, Regular Rate/Rhythm Breast Exam: Deferred Gastrointestinal: No Organomegaly, Non Tender, No Pulsatile Mass, Normal Bowel Sounds, Soft Genitalia: Deferred Pelvic: Deferred Rectal: Deferred Extremities: No calf tenderness, No pedal edema Musculoskeletal : Apperance: Normal Neurologic: Alert, sand mixer II-XII nml as Tested, No Motor Deficits, Normal Affect, Normal Mood, No Sensory Deficits Cerebellar Function: NOT DONE Reflexes: NOT DONE Skin: Dry, Normal Color, Warm Lymphatic: No Adenopathy Was a procedure done? Was a procedure done?: No Differential Dx Considerations may include: GI bleed Electrolyte imbalance X-Ray, Labs, Meds, VS Vital Signs Date Time Temp Pulse Resp B/P (MAP) Pulse Ox O2 Delivery O2 Flow Rate FiO2 12/06/24 16:37 97.5 59 18 136/69 (91) 94 97.5 12/06/24 15:45 98.2 90 15 135/72 (93) 100 98.2 Patient alert. Complaining of vomiting. Vitals stable. Answering all questions. Establish intravenous access. Was given fluids. Was given Protonix. Reviewed her history. Explained to the patient. Continue cardiac monitoring. Patient vitals stable. Abdomen is soft nontender. CT scan of the abdomen reviewed does not show any acute changes. Was given prescription of Protonix Zofran. Was told to follow up with her psychiatrist. Was told to follow up with her primary care physician. Was told to come back if there is any problem. Time of 1ST Reevaluation: 16:10 Reevaluation 1ST: Improved Patient Education/Counseling: Diagnosis, Treatment, Prognosis Family Education/Counseling: No Family Present Departure 1 Departure Time of Disposition: 16:18 Impression: Primary Impression: Viral gastroenteritis Additional Impressions: Gastritis Qualified Codes: K29.50 - Unspecified chronic gastritis without bleeding Anxiety Disposition: HOME / SELF CARE / HOMELESS Condition: Good e-Prescriptions Ondansetron Odt 4MG Tab (ZOFRAN PO) 4 Mg Tb 4 MG PO DAILY for 10 Days, #10 TAB ODT TAB-DISSOLVE IN MOUTH, THEN SWALLOW Prov: FAYE MOONEY MD 12/06/24 Pantoprazole Sodium Sesquihydr (Protonix) 40 Mg Tab 40 MG PO DAILY for 10 Days, #10 TAB Prov: FAYE MOONEY MD 12/06/24 Discharged With: Self Critical Care Note Critical Care Time?: Yes (45 min-critical care time only) Critical care comment: Continues to be vomiting was given Zofran was given Protonix Stability Stability form required: No Heart Score Heart Score: Heart Score Response (Comments) Value History N/A 0 EKG N/A 0 Age N/A 0 Risk Factors N/A 0 Troponin N/A 0 Total 0 I personally scribed for FAYE MOONEY MD ([email or web address]) on 12/06/24 at 16:09. Electronically submitted by Guillermo Fisher ([email or web address]). FAYE MOONEY MD Dec 06, 2024 16:09
--- NOTE | 2024-12-06 16:34 | DVH ---
Exam: CT CT AB PEL WO CON-NO ORAL OR IV History: gibleed Comparison Study: CT CT AB PEL WO CON-NO ORAL OR IV on DOS: 11/28/24, CT ABD PELVIS WO CONTRAST on DOS : 11/03/22, CT ABD PELVIS WO CONTRAST on DOS: 03/06/22 TECHNIQUE: Multidetector CT of the abdomen and pelvis was performed from lung bases to pubic symphysi s. Imaging was performed without IV contrast. Axial, coronal, and sagittal multiplanar reformats were obtained from the axial data set by the technologist. RADIATION DOSE: DLP 1269.41 mGy.cm; CTDI vol 22.05 mGy. Findings: Lungs: The lung bases are clear. Heart: No cardiomegaly or pericardial effusion. Liver: Unremarkable. Gallbladder: Cholecystectomy. Spleen: Unremarkable Pancreas: Unremarkable Adrenals: Unremarkable Kidneys: Unremarkable GI tract: Unremarkable : Unremarkable. Vasculature: Unremarkable Lymphadenopathy: Absent Peritoneum: No ascites Musculoskeletal: Unremarkable Soft tissues: Unremarkable Impression: 1. No acute abdominopelvic abnormalities.
[2024-12-06 16:37] VITALS: BP 136/69; PULSE 59; RESP 18; TEMP 97.5; O2SAT 94
[2024-12-06] MEDS ORDERED: PANT40TA2 PO (16:50)
[2024-12-06] MEDS ORDERED: ZOFR4T PO (16:50)
[2024-12-06] MEDS: MORPHINE SULFATE 4 MG/ML SYR/VIAL IV ONE (16:54)
[2024-12-06] MEDS: PANTOPRAZOLE 40 MG/10 ML VIAL INJ IV ONE (16:57)
[2024-12-06] MEDS: ONDANSETRON HCL 4 MG/2 ML VIAL IV ONE (17:01)
[2024-12-06] MEDS: SODIUM CHLORIDE 0.9% 1,000 ML IV ONE (17:04)
[2024-12-06 17:05] LABS: Basophils # (auto) 0 10 ^3/uL (0-0.2); Basophils % (auto) 0.5 % (0.0-2.0); Eosinophils # (auto) 0 10 ^3/uL (0-0.8); Eosinophils % (auto) 0.7 % (0.0-7.0); Hematocrit 39.5 % (36.0-46.0); Hemoglobin 13.4 g/dL (12.2-16.2); Lymphocytes # (auto) 2.1 10 ^3/uL (0.4-5.4); Mean Corpuscular Hemoglobin 32.2 pg (28.0-32.0); Mean Corpuscular Volume 94.7 fL (80.0-100.0); Monocytes # (auto) 0.3 10 ^3/uL (0-1.3); Monocytes % (auto) 5.1 % (0.0-12.0); Neutrophils % (auto) 61.7 % (37.0-80.0); Nucleated Red Blood Cells % 0.2 %; Platelet Count (auto) 186 10^3/uL (140-450); Red Blood Cells 4.17 10^6/uL (4.0-5.20); Red Cell Distribution Width 13.5 % (11.8-14.3); White Blood Cell 6.6 10^3/uL (4.4-10.8)
[2024-12-06 17:16] LABS: Potassium 3.6 mmol/L (3.5-5.1); Sodium 141 mmol/L (136-145)
[2024-12-06 17:17] LABS: Anion Gap 11 (5-15); Calcium 9.9 mg/dL (8.7-10.4); Carbon Dioxide 22 mmol/L (20-31)
[2024-12-06 17:22] LABS: BUN/Creatinine Ratio 10.4 (10.0-20.0); Blood Urea Nitrogen 10 mg/dL (9-23); Glucose 92 mg/dL (74-106)
[2024-12-06 17:23] LABS: Chloride 108 mmol/L (98-107)
== END 2024-12-06 17:10 | disposition home or self-care (01) ==
LOC: EDBD 15:33 → ER 15:38
DX: A08.4 Viral intestinal infection, unspecified (principal); K29.70 Gastritis, unspecified, without bleeding; F41.9 Anxiety disorder, unspecified; I11.0 Hypertensive heart disease with heart failure; I50.9 Heart failure, unspecified; Z79.82 Long term (current) use of aspirin; Z79.899 Other long term (current) drug therapy; Z86.73 Personal history of transient ischemic attack (TIA), and cerebral infarction without residual deficits; Z87.440 Personal history of urinary (tract) infections; Z90.49 Acquired absence of other specified parts of digestive tract; Z91.041 Radiographic dye allergy status; Z98.890 Other specified postprocedural states; Z88.0 Allergy status to penicillin; Z88.5 Allergy status to narcotic agent; Z88.8 Allergy status to other drugs, medicaments and biological substances
CPT/HCPCS: 36415; 71045; 74176; 80048; 85025; 96361; 96374; 96375; 99285; J2405; J2470; J7030

== ENCOUNTER 2025-04-14 15:20 | Emergency (ER) | payer OTHER ==
[~2025-04-14] VITALS: Ht 180.3 cm; Wt 118.0 kg
[2025-04-14] MEDS: SODIUM CHLORIDE 0.9% 1,000 ML IV ONE (15:30)
--- NOTE | 2025-04-14 15:43 | ED.PDOC ---
History of Present Illness HPI Comments 39-year-old female brought by paramedics while shopping at [email or web address] for seizure. Paramedics stated that the [employer] in place saw her shaking had her placed on the chair. Denies hitting her head to the ground. Does have a history of seizures CVA. Patient was admitted at [facility] few weeks ago for a seizure episode. She does state that she has been taking her medications. She is alert oriented no sign of any injury. Chief Complaint: Seizure Time Seen by MD: 15:25 Primary Care Provider: JULY Reviewed Notes: Nurses Notes, Medications, Allergies Allergies: Coded Allergies: Codeine (Verified Allergy, Severe, 03/29/22) Hydromorphone (Verified Allergy, Severe, 12/06/24) Iodine (Verified Allergy, Severe, 03/29/22) Morphine (Verified Allergy, Severe, 03/29/22) Penicillins (Verified Allergy, Severe, 03/29/22) Valproic Acid (Verified Allergy, Severe, 03/29/22) Red Dye #40 (Allura Red) (Verified Allergy, Unknown, 05/28/24) Home Meds Active Scripts Ondansetron Odt 4MG Tab (ZOFRAN PO) 4 Mg Tb, 4 MG PO DAILY for 10 Days, #10 TAB ODT TAB-DISSOLVE IN MOUTH, THEN SWALLOW Prov:FAYE MOONEY MD 12/06/24 Pantoprazole Sodium Sesquihydr (Protonix) 40 Mg Tab, 40 MG PO DAILY for 10 Days, #10 TAB Prov:FAYE MOONEY MD 12/06/24 Omeprazole (Omeprazole Dr) 40 Mg Cap, 40 MG PO DAILY for 30 Days, #30 CAP Prov:DAVID OMALLEY 11/28/24 Ondansetron Odt 4MG Tab (ZOFRAN PO) 4 Mg Tb, 4 MG PO TID PRN, #20 TAB ODT TAB-DISSOLVE IN MOUTH, THEN SWALLOW Prov:DAVID OMALLEY 11/28/24 Ibuprofen Micronized (Ibuprofen) 800 Mg Tab, 800 MG PO TID PRN, #40 TAB Prov:DAVID OMALLEY 07/03/24 Cyclobenzaprine Hcl (Cyclobenzaprine Hcl) 5 Mg Tab, 1 TAB PO TID, #30 TAB Prov:DAVID OMALLEYP 07/03/24 Epinephrine (Epinephrine) 0.3 Mg/0.3 Ml Inj, 0.3 MG IJ ONCE, #1 INJ Prov:RHODESWILFRID SALLY PAC 05/28/24 Ibuprofen (Ibuprofen) 800 Mg Tab, 1 TAB PO TID, #24 TAB Prov:ANA MUHAMMAD PA 10/08/23 Sulfamethoxazole W/Trimethopri (Bactrim Ds Tablet) 1 Tab Tb, 1 TAB PO BID, #20 TAB Prov:ANA MUHAMMAD PA 10/08/23 Nitrofurantoin Monohydrate Mac (Macrobid) 100 Mg Cap, 100 MG PO BID for 7 Days, #14 CAP Prov:DAVID OMALLEY SURGERY ASSISTANT 04/28/23 Azithromycin (Zithromax Z-Gilberto) 250 Mg Tab, 250 MG PO DAILY for 5 Days, #5 TAB Prov:STARLA TAPIA NP 11/23/22 Ondansetron (Zofran) 4 Mg Tab, 1 TAB PO Q6HR, #20 TAB Prov:FERNANDEZ GIANG MD 11/03/22 Pantoprazole Sodium Sesquihydr (Protonix) 40 Mg Tab, 40 MG PO DAILY, #30 TAB Prov:FERNANDEZ GIANG MD 11/03/22 Famotidine (Pepcid AC) 20 Mg Tab, 20 MG PO QHSP PRN for 30 Days, #30 TAB Prov:SUSY RODARTE MD 05/08/22 Levetiracetam (Keppra) 500 Mg Tab, 500 MG PO DAILY for 90 Days, #90 TAB 2 Refills Prov:SUSY RODARTE MD 05/07/22 Spironolactone (Aldactone) 25 Mg Tab, 1 TAB PO DAILY PRN for 5 Days, #5 TAB 1 Refill Prov:DAVID LUNDBERG MD 03/07/22 Furosemide (Lasix) 20 Mg Tb, 1 TAB PO DAILY for 5 Days, #5 TAB 1 Refill Prov:DAVID LUNDBERG MD 03/07/22 Ciprofloxacin Hcl (Cipro) 500 Mg Tab, 1 TAB PO BID for 7 Days, #14 TAB Prov:DAVID LUNDBERG MD 03/07/22 Omeprazole (Omeprazole Dr) 40 Mg Cap, 40 MG PO DAILY for 10 Days, #10 CAP Prov:DAVID LUNDBERG MD 03/07/22 Metoclopramide Hcl (Reglan) 10 Mg Tab, 10 MG PO BID for 5 Days, #10 TAB Prov:DAVID LUNDBERG MD 03/07/22 Levofloxacin (Levaquin) 500 Mg Tab, 500 MG PO DAILY, #7 TAB Prov:MARTHA GARCIA MD 04/02/21 Reported Medications Multiple Vitamins W/ Minerals (Womens Multi Gummies) 1 Chw Chw, 1 CHW PO DAILY, TAB.CHEW 04/01/21 Zinc Gluconate (ZINC) Unknown Strength Tab, PO EOD 1 TAB PO EVERY OTHER DAY PER PATIENT (PATIENT REPORTS STRENGTH 250 MG) 04/01/21 Cyanocobalamin (VITAMIN B 12) Unknown Strength Cristy, PO DAILY 1 TAB DAILY PER PATIENT 04/01/21 Ascorbic Acid (Vitamin C) 1,000 Mg Tab, 1000 MG PO DAILY 1000 MG TAB DAILY PER PATIENT 04/01/21 Acetaminophen (Tylenol Extra Strength) 500 Mg Tab, 2 TAB PO Q4HPRN, TAB EXTRA STRENGTH TYLENOL 2 TABS PO Q4HPRN PER PATIENT 04/01/21 Aspirin (Aspir-81) 81 Mg Tab, 1 TAB PO DAILY 04/01/21 Emtricitabine/Rilpivirine/Teno (Odefsey 200-25-25 mg) 1 Tab Tab, 1 TAB PO DAILY 1 TABLET DAILY PER PATIENT 04/01/21 Levetiracetam (Levetiracetam) 500 Mg Tab, 1 TAB PO BID 04/01/21 Information Source: Patient, Emergency Med Personnel Mode of Arrival: EMS Severity: Moderate Timing: Minutes Duration: Since onset Past Medical History PAST MEDICAL HISTORY: Anxiety, CHF, CVA, High Lipids, HIV, HTN, Seizures, TIA, UTI'S Surgical History: Cholecystectomy, , Hernia Repair JET WORKER History: No Pertinent JET WORKER History Family History Family History: Reviewed,noncontributory to illness, Unknown Social History Smoker: Non-Smoker Alcohol: Denies ETOH Use Drugs: Denies Drug Use Lives In: Home Constitutional: denies: chills, diaphoresis, fatigue, fever, malaise, sweats, weakness, others EENTM: denies: blurred vision, double vision, ear bleeding, ear discharge, ear drainage, ear pain, ear ringing, eye pain, eye redness, hearing loss, mouth pain, mouth swelling, nasal discharge, nose bleeding, nose congestion, nose pain, photophobia, tearing, throat pain, throat swelling, voice changes, others Respiratory: denies: cough, hemoptysis, orthopnea, SOB at rest, shortness of breath, SOB with excertion, stridor, wheezing, others Cardiovascular: denies: chest pain, dizzy spells, diaphoresis, Dyspnea on exertion, edema, irregular heart beat, left arm pain, lightheadedness, palpitations, PND, syncope, others Gastrointestinal: denies: abdomen distended, abdominal pain, blood streaked bowels, constipated, diarrhea, dysphagia, difficulty swallowing, hematemesis, melena, nausea, poor appetite, poor fluid intake, rectal bleeding, rectal pain, vomiting, others Genitourinary: denies: abnormal vagina bleeding, burning, dyspareunia, dysuria, flank pain, frequency, hematuria, incontinence, pain, , vagina discharge, urgency, others Neurological: reports: seizure; denies: dizziness, fainting, headache, left sided numbness, left sided weakness, numbness, paresthesia, pre-existing deficit, right sided numbness, right sided weakness, speech problems, tingling, tremors, weakness, others Musculoskeletal: denies: back pain, gout, joint pain, joint swelling, muscle pain, muscle stiffness, neck pain, others Integumetry: denies: bruises, change in color, change in hair/nails, dryness, laceration, lesions, lumps, rash, wounds, others Allergic/Immunocompromised: denies: Difficulty Healing, Frequent Infections, Hives, Itching, others Hematologic/Lymphatic: denies: anemia, blood clots, easy bleeding, easy bruising, swollen glands, others Endocrine: denies: excessive hunger, excessive sweating, excessive thirst, excessive urination, flushing, intolerance to cold, intolerance to heat, unexplained weight gain, unexplained weight loss, others Psychiatric: denies: anxiety, bipolar disorder, depression, hopeless, panic disorder, schizophrenia, sleepless, suicidal, others All Other Systems: Reviewed and Negative Physical Exam General Appearance: Moderate Distress HEENT: Normal ENT Inspection, Pharynx Normal, TMs Normal Neck: Full Range of Motion, Non-Tender, Normal, Normal Inspection Respiratory: Chest Non-Tender, Lungs Clear, No Accessory Muscle Use, No Respiratory Distress, Normal Breath Sounds Cardiovascular: No Edema, No JVD, No Murmur, No Gallop, Normal Peripheral Pulses, Regular Rate/Rhythm Breast Exam: Deferred Gastrointestinal: No Organomegaly, Non Tender, No Pulsatile Mass, Normal Bowel Sounds, Soft Genitalia: Deferred Pelvic: Deferred Rectal: Deferred Extremities: No calf tenderness, Normal capillary refill, Normal inspection, Normal range of motion, Non-tender, No pedal edema Musculoskeletal : Apperance: Normal Neurologic: Alert, manager diversity II-XII nml as Tested, No Motor Deficits, Normal Affect, Normal Mood, No Sensory Deficits Cerebellar Function: NOT DONE Reflexes: NOT DONE Skin: Dry, Normal Color, Warm Peripheral Pulses: 3+ Radial (R), 3+ Radial (L) Lymphatic: No Adenopathy Was a procedure done? Was a procedure done?: No Differential Dx Considerations may include: Seizure X-Ray, Labs, Meds, VS Vital Signs Date Time Temp Pulse Resp B/P (MAP) Pulse Ox O2 Delivery O2 Flow Rate FiO2 04/14/25 15:20 98.4 107 20 142/73 96 98.4 04/14/25 15:20 98.4 107 20 142/73 (96) 96 98.4 Lab Test 04/14/25 15:37 Range/Units White Blood Count 5.9 4.4-10.8 10^3/uL Red Blood Count 4.05 4.0-5.20 10^6/uL Hemoglobin 13.4 12.2-16.2 g/dL Hematocrit 38.8 36.0-46.0 % Mean Corpuscular Volume 95.8 80.0-100.0 fL Mean Corpuscular Hemoglobin 33.2 H 28.0-32.0 pg Mean Corpuscular Hemoglobin Concent 34.6 32.0-36.0 g/dL Red Cell Distribution Width 13.6 11.8-14.3 % Platelet Count 157 140-450 10^3/uL Mean Platelet Volume 9.2 6.9-10.8 fL Neutrophils (%) (Auto) 56.8 37.0-80.0 % Lymphocytes (%) (Auto) 37.2 10.0-50.0 % Monocytes (%) (Auto) 4.9 0.0-12.0 % Eosinophils (%) (Auto) 0.7 0.0-7.0 % Basophils (%) (Auto) 0.4 0.0-2.0 % Neutrophils # (Auto) 3.4 1.6-8.6 10 ^3/uL Lymphocytes # (Auto) 2.2 0.4-5.4 10 ^3/uL Monocytes # (Auto) 0.3 0-1.3 10 ^3/uL Eosinophils # (Auto) 0 0-0.8 10 ^3/uL Basophils # (Auto) 0 0-0.2 10 ^3/uL Nucleated Red Blood Cells 0.1 % Sodium Level 143 136-145 mmol/L Potassium Level 3.7 3.5-5.1 mmol/L Chloride Level 112 H 98-107 mmol/L Carbon Dioxide Level 21 20-31 mmol/L Anion Gap 10 5-15 Blood Urea Nitrogen 11 9-23 mg/dL Creatinine 1.07 H 0.550-1.02 mg/dL Glomerular Filtration Rate Calc 68 >90 mL/min BUN/Creatinine Ratio 10.3 10.0-20.0 Serum Glucose 119 H 74-106 mg/dL Calcium Level 9.3 8.7-10.4 mg/dL Patient alert. Had a seizure while shopping. Vitals stable. Answering questions. No sign of any injury. Moving all extremities. CT of the head reviewed does not show any acute changes. Reviewed her previous visit. She has been here many times for the same symptom. 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 No oral trauma. No trauma anywhere in the body. Explained to the patient. Was told to follow up with her primary care physician. Was told to come back if there is any problem. Time of 1ST Reevaluation: 15:41 Reevaluation 1ST: Unchanged Patient Education/Counseling: Diagnosis, Treatment, Prognosis, Need For Follow Up Family Education/Counseling: No Family Present SEPSIS Sepsis Screen Physician Orders Urinalysis (04/14/25 15:26) Head Without Contrast (04/14/25 15:43) Vital Signs Date Time Temp Pulse Resp B/P (MAP) Pulse Ox O2 Delivery O2 Flow Rate FiO2 04/14/25 15:20 98.4 107 20 142/73 96 98.4 04/14/25 15:20 98.4 107 20 142/73 (96) 96 98.4 Laboratory Tests Test 04/14/25 15:37 White Blood Count 5.9 10^3/uL (4.4-10.8) Departure 1 Departure Time of Disposition: 15:42 Impression: Primary Impression: Seizure disorder Disposition: 01 HOME / SELF CARE / HOMELESS Condition: Good Discharged With: Self Critical Care Note Critical Care Time?: No Stability Stability form required: No Heart Score Heart Score: Heart Score Response (Comments) Value History N/A 0 EKG N/A 0 Age N/A 0 Risk Factors N/A 0 Troponin N/A 0 Total 0 I personally scribed for FAYE MOONEY MD ([email or web address]) on 04/14/25 at 15:47. Electronically submitted by Reshma Fierro ([facility]). FAYE MOONEY MD Apr 14, 2025 15:43
[2025-04-14 15:56] LABS: Hematocrit 38.8 % (36.0-46.0); Hemoglobin 13.4 g/dL (12.2-16.2); Mean Corpuscular Hemoglobin 33.2 pg (28.0-32.0); Mean Corpuscular Volume 95.8 fL (80.0-100.0); Nucleated Red Blood Cells % 0.1 %
[2025-04-14 16:05] LABS: Potassium 3.7 mmol/L (3.5-5.1); Sodium 143 mmol/L (136-145)
[2025-04-14 16:06] LABS: Anion Gap 10 (5-15); Calcium 9.3 mg/dL (8.7-10.4); Carbon Dioxide 21 mmol/L (20-31)
[2025-04-14 16:11] LABS: BUN/Creatinine Ratio 10.3 (10.0-20.0); Blood Urea Nitrogen 11 mg/dL (9-23)
[2025-04-14 16:12] LABS: Chloride 112 mmol/L (98-107); Glucose 119 mg/dL (74-106)
[2025-04-14 17:48] LABS: Urine Protein, UAD TRACE (Negative)
--- NOTE | 2025-04-14 17:48 | DVH ---
EXAM: CT HEAD WITHOUT CONTRAST INDICATION: seizure TECHNIQUE: CT of the head without intravenous contrast. Radiation Dose Information: CT Dose: CTDI volume is 53.63 mGy. Dose-length product is 849.74 mGy*cm The dose indicators for CT are the volume Computed Tomography (CT) Dose Index (CTDIvol) and the Dose Length Product (DLP), and are measured in units of mGy and mGy-cm, respectively. These indicators are not patient dose, but values generated from the CT scanner acquisition factors. The report includes radiation exposure data for exposures received during this examination. COMPARISON: CT HEAD WITHOUT CONTRAST on DOS: 05/28/24, CT HEAD WITHOUT CONTRAST on DOS: 04/28/23, CT HE AD WITHOUT CONTRAST on DOS: 01/05/23 FINDINGS: There is no evidence of acute intracranial hemorrhage, extra-axial collection, mass effect, midline s hift, herniation or hydrocephalus. The ventricles, sulci and cisterns are age appropriate. The bowling-white differentiation is intact. Patchy periventricular and subcortical white matter hypoattenuation is nonspecific but may be related to small vessel ischemic disease. Mucosal thickening left maxillary, ethmoid sphenoid and frontal sinuses. The mastoid air cells are cl ear. The surrounding soft tissues and osseous structures are unremarkable. IMPRESSION: 1. No acute intracranial abnormality. 2. Sinus disease on the left. 3. No intracranial masses 4. No findings of territorial ischemia. HS:Y
[2025-04-14] MEDS ORDERED: NITR-87 PO (17:54)
[2025-04-14 18:25] VITALS: BP 133/77; PULSE 60; RESP 16; TEMP 97.8; O2SAT 97
== END 2025-04-14 18:41 | disposition home or self-care (01) ==
LOC: EDBD 15:20 → ER 15:22
DX: G40.909 Epilepsy, unspecified, not intractable, without status epilepticus (principal); I11.0 Hypertensive heart disease with heart failure; I50.9 Heart failure, unspecified; Z98.890 Other specified postprocedural states; Z90.49 Acquired absence of other specified parts of digestive tract; Z88.0 Allergy status to penicillin; Z86.73 Personal history of transient ischemic attack (TIA), and cerebral infarction without residual deficits; Z79.899 Other long term (current) drug therapy
CPT/HCPCS: 36415; 70450; 80048; 81001; 82947; 85025

== ENCOUNTER 2025-06-07 20:49 | Emergency (ER) | payer OTHER ==
[~2025-06-07] VITALS: Ht 180.3 cm; Wt 117.2 kg
[2025-06-07 20:50] VITALS: BP 123/82; PULSE 70; RESP 16; TEMP 96; O2SAT 97
--- NOTE | 2025-06-07 21:14 | ED.PDOC ---
Musculoskeletal HPI Comments 40-year-old female came to ER for right knee pain. Patient has a ground level fall 12 days ago, and landed badly on her right knee. Patient's since then has been complaining right knee pain, right knee swelling, and pain behind her right lower leg. Patient was seen at urgent care, then was advised to proceed to the ER to rule out DVTs. REVIEW OF SYSTEMS: General: No fever, no chills, or fatigue HEENT: No sore throat, no earache, no congestion, no neck pain. Cardiac: No chest pain. No palpitations. Lungs: No shortness of breath, no cough. GI: No nausea, no vomiting, no diarrhea, no constipation, no abdominal pain : No dysuria, frequency, or urgency. No hematuria. Musculoskeletal: (+) right knee joint pain , (+) right knee joint swelling, no extremity edema. Skin: No rash, no itching. Neuro: No headache, no dizziness, no weakness PHYSICAL EXAM: General: Awake, alert and oriented. No acute distress. Skin: Skin in warm, dry and intact without rashes or lesions. HEENT: The head is normocephalic and atraumatic. Conjunctivae are clear without exudates or hemorrhage. Sclera is non-icteric. Neck: Normal range of motion. No JVD. Cardiac: Regular rate Respiratory: No signs of respiratory distress. No Stridor. Extremities: Extremities: Right lower extremity greater diameter than left. Anterior patellar tenderness. No knee effusion. Good range of motion. Positive posterior right lower calf tenderness. Neurological: The patient is awake, alert and oriented to person, place, and time with normal speech. Speech is clear. There is no facial asymmetry. Psychiatric: Appropriate mood and affect. Good judgement and insight. Chief Complaint: Lower Extremity Time Seen by MD: 21:12 Primary Care Provider: JULY Wu Notes: Nurses Notes Allergies: Coded Allergies: Codeine (Verified Allergy, Severe, 03/29/22) Hydromorphone (Verified Allergy, Severe, 12/06/24) Iodine (Verified Allergy, Severe, 03/29/22) Morphine (Verified Allergy, Severe, 03/29/22) Penicillins (Verified Allergy, Severe, 03/29/22) Valproic Acid (Verified Allergy, Severe, 03/29/22) Red Dye #40 (Allura Red) (Verified Allergy, Unknown, 05/28/24) Home Meds Active Scripts Nitrofurantoin Monohydrate Mac (Macrobid) 100 Mg Cap, 100 MG PO BID for 5 Days, #10 CAP Prov:FAYE MOONEY MD 04/14/25 Ondansetron Odt 4MG Tab (ZOFRAN PO) 4 Mg Tb, 4 MG PO DAILY for 10 Days, #10 TAB ODT TAB-DISSOLVE IN MOUTH, THEN SWALLOW Prov:FAYE MOONEY MD 12/06/24 Pantoprazole Sodium Sesquihydr (Protonix) 40 Mg Tab, 40 MG PO DAILY for 10 Days, #10 TAB Prov:FAYE MOONEY MD 12/06/24 Omeprazole (Omeprazole Dr) 40 Mg Cap, 40 MG PO DAILY for 30 Days, #30 CAP Prov:DAVID OMALLEY 11/28/24 Ondansetron Odt 4MG Tab (ZOFRAN PO) 4 Mg Tb, 4 MG PO TID PRN, #20 TAB ODT TAB-DISSOLVE IN MOUTH, THEN SWALLOW Prov:DAVID OMALLEY 11/28/24 Ibuprofen Micronized (Ibuprofen) 800 Mg Tab, 800 MG PO TID PRN, #40 TAB Prov:DAVID OMALLEY 07/03/24 Cyclobenzaprine Hcl (Cyclobenzaprine Hcl) 5 Mg Tab, 1 TAB PO TID, #30 TAB Prov:DAVID OMALLEY 07/03/24 Epinephrine (Epinephrine) 0.3 Mg/0.3 Ml Inj, 0.3 MG IJ ONCE, #1 INJ Prov:WILFRID RHODES PAC 05/28/24 Ibuprofen (Ibuprofen) 800 Mg Tab, 1 TAB PO TID, #24 TAB Prov:ANA MUHAMMAD 10/08/23 Sulfamethoxazole W/Trimethopri (Bactrim Ds Tablet) 1 Tab Tb, 1 TAB PO BID, #20 TAB Prov:ANA MUHAMMAD 10/08/23 Nitrofurantoin Monohydrate Mac (Macrobid) 100 Mg Cap, 100 MG PO BID for 7 Days, #14 CAP Prov:DAVID OMALLEY 04/28/23 Azithromycin (Zithromax Z-Gilberto) 250 Mg Tab, 250 MG PO DAILY for 5 Days, #5 TAB Prov:STARLA TAPIA NP 11/23/22 Ondansetron (Zofran) 4 Mg Tab, 1 TAB PO Q6HR, #20 TAB Prov:FERNANDEZ GIANG MD 11/03/22 Pantoprazole Sodium Sesquihydr (Protonix) 40 Mg Tab, 40 MG PO DAILY, #30 TAB Prov:FERNANDEZ GIANG MD 11/03/22 Famotidine (Pepcid AC) 20 Mg Tab, 20 MG PO QHSP PRN for 30 Days, #30 TAB Prov:SUSY RODARTE MD 05/08/22 Levetiracetam (Keppra) 500 Mg Tab, 500 MG PO DAILY for 90 Days, #90 TAB 2 Refills Prov:SUSY RODARTE MD 05/07/22 Spironolactone (Aldactone) 25 Mg Tab, 1 TAB PO DAILY PRN for 5 Days, #5 TAB 1 Refill Prov:DAVID LUNDBERG MD 03/07/22 Furosemide (Lasix) 20 Mg Tb, 1 TAB PO DAILY for 5 Days, #5 TAB 1 Refill Prov:DAVID LUNDBERG MD 03/07/22 Ciprofloxacin Hcl (Cipro) 500 Mg Tab, 1 TAB PO BID for 7 Days, #14 TAB Prov:DAVID LUNDBERG MD 03/07/22 Omeprazole (Omeprazole Dr) 40 Mg Cap, 40 MG PO DAILY for 10 Days, #10 CAP Prov:DAVID LUNDBERG MD 03/07/22 Metoclopramide Hcl (Reglan) 10 Mg Tab, 10 MG PO BID for 5 Days, #10 TAB Prov:DAVID LUNDBERG MD 03/07/22 Levofloxacin (Levaquin) 500 Mg Tab, 500 MG PO DAILY, #7 TAB Prov:MARTHA GARCIA MD 04/02/21 Reported Medications Multiple Vitamins W/ Minerals (Womens Multi Gummies) 1 Chw Chw, 1 CHW PO DAILY, TAB.CHEW 04/01/21 Zinc Gluconate (ZINC) Unknown Strength Tab, PO EOD 1 TAB PO EVERY OTHER DAY PER PATIENT (PATIENT REPORTS STRENGTH 250 MG) 04/01/21 Cyanocobalamin (VITAMIN B 12) Unknown Strength Cristy, PO DAILY 1 TAB DAILY PER PATIENT 04/01/21 Ascorbic Acid (Vitamin C) 1,000 Mg Tab, 1000 MG PO DAILY 1000 MG TAB DAILY PER PATIENT 04/01/21 Acetaminophen (Tylenol Extra Strength) 500 Mg Tab, 2 TAB PO Q4HPRN, TAB EXTRA STRENGTH TYLENOL 2 TABS PO Q4HPRN PER PATIENT 04/01/21 Aspirin (Aspir-81) 81 Mg Tab, 1 TAB PO DAILY 04/01/21 Emtricitabine/Rilpivirine/Teno (Odefsey 200-25-25 mg) 1 Tab Tab, 1 TAB PO DAILY 1 TABLET DAILY PER PATIENT 04/01/21 Levetiracetam (Levetiracetam) 500 Mg Tab, 1 TAB PO BID 04/01/21 Information Source: Patient Mode of Arrival: Wheelchair Location: Right Extremity Location: Knee Timing: Days Past Medical History PAST MEDICAL HISTORY: Anxiety, CHF, CVA, High Lipids, HIV, HTN, Seizures, TIA, UTI'S Surgical History: Cholecystectomy, , Hernia Repair DINKEY SKINNER History: No Pertinent DINKEY SKINNER History Family History Family History: Reviewed,noncontributory to illness, Unknown Social History Smoker: Non-Smoker Alcohol: Denies ETOH Use Drugs: Denies Drug Use Lives In: Home Was a procedure done? Was a procedure done?: No Differential Diagnosis EXT Differential Diagnosis: Deep Vein Thrombosis, Fracture, Sprain, Strain X-Ray, Labs, Meds, VS Vital Signs Date Time Temp Pulse Resp B/P (MAP) Pulse Ox O2 Delivery O2 Flow Rate FiO2 06/07/25 20:50 96.0 70 16 123/82 97 96.0 PROCEDURE(s): RLDVT - RT Lower DVT REASON: R calf swelling and tenderness ORDER NUMBER(s): [id number], ACCESSION NUMBER(s): [id number] CLINICAL HISTORY: R calf swelling and tenderness TECHNIQUE: Color and duplex doppler imaging of the right lower extremity veins was performed. Vessel compression if possible was also performed. WID: COMPARISON: None FINDINGS: Right common femoral vein: Normal compressibility and flow. Right femoral vein: Normal compressibility and flow. Right popliteal vein: Normal compressibility and flow. Proximal calf veins are normally compressible. IMPRESSION: 1. NO SONOGRAPHIC EVIDENCE FOR DEEP VENOUS THROMBOSIS IN THE RIGHT LOWER EXTREMITY VEINS. EDURE(s): RKN3 - R KNEE 3V XRAY REASON: r anterior knee pain s/p fall ORDER NUMBER(s): [id number], ACCESSION NUMBER(s): [id number] CLINICAL INDICATION: r anterior knee pain s/p fall TECHNIQUE: XY R KNEE 3V XRAY Comparison: None FINDINGS/IMPRESSION: : There is no evidence of acute fracture or dislocation. Small suprapatellar knee joint effusion. Minor medial compartment joint space narrowing and osteophyte formation compatible with osteoarthritis. Time of 1ST Reevaluation: 21:10 Reevaluation 1ST: Unchanged Patient Education/Counseling: Need For Follow Up Family Education/Counseling: No Family Present Departure 1 Departure Time of Disposition: 21:57 Impression: Primary Impression: Right knee pain Disposition: 01 HOME / SELF CARE / HOMELESS Condition: Stable Additional Instructions: ED DISCHARGE INSTRUCTIONS Instructions: Please read all instructions provided in this packet carefully. Although you have been discharged from the Emergency Department, this does not mean that you have a "clean bill of health". []No definitive diagnosis for your symptoms has been made today. It is possible that you are in the process of dev eloping a serious illness. This is why you must return to the ED without fail if any new or worsening symptoms (especially if your symptoms include chest pain, trouble breathing, abdominal pain, fever, headache, confusion, trouble seeing, or trouble walking) It is also very important that you see a primary care provider (PCP) within the next 3-5 days to follow up. If you are unable to get an appointment, return to the ED for re-evaluation. Knee Pain or Injury: Care Instructions Overview Injuries are a common cause of knee problems. Sudden (acute) injuries may be caused by a direct blow to the knee. They can also be caused by abnormal twisting, bending, or falling on the knee. Pain, bruising, or swelling may be severe, and may start within minutes of the injury. Overuse is another cause of knee pain. Other causes are climbing stairs, kneeling, and other activities that use the knee. Everyday wear and tear, especially as you get older, also can cause knee pain. Rest, along with home treatment, often relieves pain and allows your knee to heal. If you have a serious knee injury, you may need tests and treatment. Follow-up care is a tran part of your treatment and safety. Be sure to make and go to all appointments, and call your doctor if you are having problems. It's also a good idea to know your test results and keep a list of the medicines you take. How can you care for yourself at home? Be safe with medicines. Read and follow all instructions on the label. If the doctor gave you a prescription medicine for pain, take it as prescribed. If you are not taking a prescription pain medicine, ask your doctor if you can take an [id number] medicine. Rest and protect your knee. Take a break from any activity that may cause pain. Put ice or a cold pack on your knee for 10 to 20 minutes at a time. Put a thin cloth between the ice and your skin. Prop up a sore knee on a pillow when you ice it or anytime you sit or lie down for the next 3 days. Try to keep it above the level of your heart. This will help reduce swelling. If your knee is not swollen, you can put moist heat, a heating pad, or a warm cloth on your knee. If your doctor recommends an elastic bandage, sleeve, or other type of support for your knee, wear it as directed. Follow your doctor's instructions about how much weight you can put on your leg. Use a cane, crutches, or a walker as instructed. Follow your doctor's instructions about activity during your healing process. If you can do mild exercise, slowly increase your activity. Stay at a healthy weight. Extra weight can strain the joints, especially the knees and hips, and make the pain worse. Losing a few pounds may help. When should you call for help? Call 911 anytime you think you may need emergency care. For example, call if: You have symptoms of a blood clot in your lung (called a pulmonary embolism). These may include: Sudden chest pain. Trouble breathing. Coughing up blood. Call your doctor now or seek immediate medical care if: You have severe or increasing pain. Your leg or foot turns cold or changes color. You cannot stand or put weight on your knee. Your knee looks twisted or bent out of shape. You cannot move your knee. You have signs of infection, such as: Increased pain, swelling, warmth, or redness. Red streaks leading from the knee. Pus draining from a place on your knee. A fever. You have signs of a blood clot in your leg (called a deep vein thrombosis), such as: Pain in your calf, back of the knee, thigh, or groin. Redness and swelling in your leg or groin. Watch closely for changes in your health, and be sure to contact your doctor if: You have tingling, weakness, or numbness in your knee. You have any new symptoms, such as swelling. You have bruises from a knee injury that last longer than 2 weeks. You do not get better as expected. Credits for Knee Pain or Injury: Care Instructions Current as of: April 12, 2024 Author: [employer] Staff Clinical Review Board All [employer] education is reviewed by a team that includes physicians, nurses, advanced practitioners, registered dieticians, and other healthcare professionals. e-Prescriptions Ibuprofen (Ibuprofen) 600 Mg Tab 1 TAB PO TID, #15 TAB Prov: LARON MIRZA MD 06/07/25 Acetaminophen (Acetaminophen Er) 650 Mg Tab 650 MG PO TIDPRN PRN, #15 TAB Prov: LARON MIRZA MD 06/07/25 Elastic Bandages & Supports (Knee Brace) Large Mis UNITS XX ONCE, #1 Prov: LARON MIRZA MD 06/07/25 Comments Extensive evaluation was performed in attempt to identify or rule out: (See differential diagnosis section) The following tests were ordered, and results were reviewed by me and discussed with patient: (See diagnostic results section) The following test were independently interpreted by me: N/A I reviewed and agreed with the following test results read by other providers: N/A I reviewed the following notes from the pt's past medical encounters: N/A Additional information was gathered from interviewing the following independent historians: N/A Discussion of management or test interpretation with external physician/other qualified health ocular care technologist: N/A Addressed [ ]one or more chronic illnesses with severe exacerbation, progression, or side effects of treatment: [ ]an acute or chronic illness that poses a threat to life or bodily function: [ ] Decision regarding hospitalization or escalation of hospital level of care: Risk and benefits of admission for further treatment of patient's condition was considered. Due to patient's current clinical condition, high risk of decline and poor outcome if discharged and need for further inpatient management and monitoring, patient will be admitted to the hospital. Discussed with patient. Drug therapy requiring intensive monitoring for toxicity: N/A Parenteral controlled substances: N/A Decision regarding elective major surgery with identified patient or procedure risk factors: N/A Decision regarding emergency major surgery: N/A Decision not to resuscitate or to de-escalate care because of poor prognosis: N/A Diagnosis or treatment significantly limited by social determinants of health: N/A Decision regarding hospitalization or escalation of hospital level of care: Risks and benefits of admission for further treatment of patient's condition was considered however due to patient's stable condition patient will be discharged to follow up closely or return to care for worsening of condition or inability to follow up. Critical Care Note Critical Care Time?: No Stability Stability form required: No I personally scribed for LARON MIRZA MD ([email or web address]) on 06/07/25 at 21:14. Electronically submitted by Hemal Shaikh ([employer]). I personally scribed for LARON MIRZA MD ([email or web address]) on 06/07/25 at 21:53. Electronically submitted by Hemal Shaikh ([email or web address]). I personally scribed for LARON MIRZA MD ([email or web address]) on 06/07/25 at 21:54. Electronically submitted by Hemal Shaikh ([email or web address]). LARON MIRZA MD Jun 07, 2025 21:14
--- NOTE | 2025-06-07 21:49 | DVH ---
CLINICAL HISTORY: R calf swelling and tenderness TECHNIQUE: Color and duplex doppler imaging of the right lower extremity veins was performed. Vessel compression if possible was also performed. WID: COMPARISON: None FINDINGS: Right common femoral vein: Normal compressibility and flow. Right femoral vein: Normal compressibility and flow. Right popliteal vein: Normal compressibility and flow. Proximal calf veins are normally compressible. IMPRESSION: 1. NO SONOGRAPHIC EVIDENCE FOR DEEP VENOUS THROMBOSIS IN THE RIGHT LOWER EXTREMITY VEINS.
--- NOTE | 2025-06-07 21:50 | DVH ---
CLINICAL INDICATION: r anterior knee pain s/p fall TECHNIQUE: XY R KNEE 3V XRAY Comparison: None FINDINGS/IMPRESSION: : There is no evidence of acute fracture or dislocation. Small suprapatellar knee joint effusion. Minor medial compartment joint space narrowing and osteophyte formation compatible with osteoarthriti s.
[2025-06-07] MEDS ORDERED: IBUP-1454 PO (21:58)
[2025-06-07] MEDS ORDERED: ACET650T12 PO (21:58)
[2025-06-07] MEDS ORDERED: [UNRECOGNIZED DRUG - CODE] XX (21:58)
[2025-06-07] MEDS: IBUPROFEN 600 MG TAB PO ONE (22:23)
[2025-06-07] MEDS: ACETAMINOPHEN 325 MG TAB PO ONE (22:23)
== END 2025-06-07 22:02 | disposition home or self-care (01) ==
LOC: ER 20:49
DX: M25.561 Pain in right knee (principal); I11.0 Hypertensive heart disease with heart failure; I50.9 Heart failure, unspecified; F41.9 Anxiety disorder, unspecified; E78.5 Hyperlipidemia, unspecified; Z87.440 Personal history of urinary (tract) infections; Z79.899 Other long term (current) drug therapy; Z79.82 Long term (current) use of aspirin; Z86.73 Personal history of transient ischemic attack (TIA), and cerebral infarction without residual deficits; Z90.49 Acquired absence of other specified parts of digestive tract; Z98.890 Other specified postprocedural states; Z79.624 Long term (current) use of inhibitors of nucleotide synthesis; Z79.1 Long term (current) use of non-steroidal anti-inflammatories (NSAID); Z88.5 Allergy status to narcotic agent; Z88.8 Allergy status to other drugs, medicaments and biological substances; Z88.0 Allergy status to penicillin
CPT/HCPCS: 73562; 93971

== ENCOUNTER 2025-08-08 04:40 | Emergency (ER) | payer OTHER ==
[~2025-08-08] VITALS: Ht 180.3 cm; Wt 200.0 kg
[~2025-08-08 04:40] MED LIST changes: +ACET650T12 PO; +IBUP-1454 PO; +[UNRECOGNIZED DRUG - CODE] XX
--- NOTE | 2025-08-08 04:55 | ED.PDOC ---
History of Present Illness HPI Comments 40-year-old female who comes in with chief complaint of dental pain. The patient states that she has been having some facial swelling since yesterday. She states that she chipped her upper molar on the right side last week. She is scheduled to see the dentist on the of next month. At this time, the pa rodrigo states that the pain is a 10/10. There has been no fever or chills. The patient is also complaining of some nausea. Chief Complaint: Face pain Time Seen by MD: 04:49 Primary Care Provider: JULY Reviewed Notes: Nurses Notes, Breaker Machine Operator Notes, Medications, Allergies (Allergies listed above) Allergies: Coded Allergies: Codeine (Verified Allergy, Severe, 03/29/22) Hydromorphone (Verified Allergy, Severe, 12/06/24) Iodine (Verified Allergy, Severe, 03/29/22) Morphine (Verified Allergy, Severe, 03/29/22) Penicillins (Verified Allergy, Severe, 03/29/22) Valproic Acid (Verified Allergy, Severe, 03/29/22) Red Dye #40 (Allura Red) (Verified Allergy, Unknown, 05/28/24) Home Meds Active Scripts Clindamycin Hcl (Clindamycin Hcl) 300 Mg Cap, 1 CAP PO BID, #14 CAP Prov:FERNANDEZ GIANG MD 08/08/25 Ondansetron Odt 4MG Tab (ZOFRAN PO) 4 Mg Tb, 4 MG PO Q12HP PRN for 5 Days, #10 TAB ODT TAB-DISSOLVE IN MOUTH, THEN SWALLOW Prov:FERNANDEZ GIANG MD 08/08/25 Tramadol HCl (Tramadol HCl) 50 Mg Tab, 50 MG PO Q8HP PRN for 5 Days, #15 TAB Prov:FERNANDEZ GIANG MD 08/08/25 Ibuprofen (Ibuprofen) 600 Mg Tab, 1 TAB PO TID, #15 TAB Prov:LARON MIRZA MD 06/07/25 Acetaminophen (Acetaminophen Er) 650 Mg Tab, 650 MG PO TIDPRN PRN, #15 TAB Prov:LARON MIRZA MD 06/07/25 Elastic Bandages & Supports (Knee Brace) Large Mis, UNITS XX ONCE, #1 Prov:LARON MIRZA MD 06/07/25 Nitrofurantoin Monohydrate Mac (Macrobid) 100 Mg Cap, 100 MG PO BID for 5 Days, #10 CAP Prov:FAYE MOONEY MD 04/14/25 Ondansetron Odt 4MG Tab (ZOFRAN PO) 4 Mg Tb, 4 MG PO DAILY for 10 Days, #10 TAB ODT TAB-DISSOLVE IN MOUTH, THEN SWALLOW Prov:FAYE MOONEY MD 12/06/24 Pantoprazole Sodium Sesquihydr (Protonix) 40 Mg Tab, 40 MG PO DAILY for 10 Days, #10 TAB Prov:FAYE MOONEY MD 12/06/24 Omeprazole (Omeprazole Dr) 40 Mg Cap, 40 MG PO DAILY for 30 Days, #30 CAP Prov:DAVID INMAN 11/28/24 Ondansetron Odt 4MG Tab (ZOFRAN PO) 4 Mg Tb, 4 MG PO TID PRN, #20 TAB ODT TAB-DISSOLVE IN MOUTH, THEN SWALLOW Prov:DAVID INMAN 11/28/24 Ibuprofen Micronized (Ibuprofen) 800 Mg Tab, 800 MG PO TID PRN, #40 TAB Prov:DAVID INMANP 07/03/24 Cyclobenzaprine Hcl (Cyclobenzaprine Hcl) 5 Mg Tab, 1 TAB PO TID, #30 TAB Prov:DAVID INMANP 07/03/24 Epinephrine (Epinephrine) 0.3 Mg/0.3 Ml Inj, 0.3 MG IJ ONCE, #1 INJ Prov:WILFRID RHODES 05/28/24 Ibuprofen (Ibuprofen) 800 Mg Tab, 1 TAB PO TID, #24 TAB Prov:ANA MUHAMMAD 10/08/23 Sulfamethoxazole W/Trimethopri (Bactrim Ds Tablet) 1 Tab Tb, 1 TAB PO BID, #20 TAB Prov:ANA MUHAMMAD 10/08/23 Nitrofurantoin Monohydrate Mac (Macrobid) 100 Mg Cap, 100 MG PO BID for 7 Days, #14 CAP Prov:DAVID INMAN 04/28/23 Azithromycin (Zithromax Z-Gilberto) 250 Mg Tab, 250 MG PO DAILY for 5 Days, #5 TAB Prov:STARLA TAPIA NP 11/23/22 Ondansetron (Zofran) 4 Mg Tab, 1 TAB PO Q6HR, #20 TAB Prov:FERNANDEZ GIANG MD 11/03/22 Pantoprazole Sodium Sesquihydr (Protonix) 40 Mg Tab, 40 MG PO DAILY, #30 TAB Prov:FERNANDEZ GIANG MD 11/03/22 Famotidine (Pepcid AC) 20 Mg Tab, 20 MG PO QHSP PRN for 30 Days, #30 TAB Prov:SUSY RODARTE MD 05/08/22 Levetiracetam (Keppra) 500 Mg Tab, 500 MG PO DAILY for 90 Days, #90 TAB 2 Refills Prov:SUSY RODARTE MD 05/07/22 Spironolactone (Aldactone) 25 Mg Tab, 1 TAB PO DAILY PRN for 5 Days, #5 TAB 1 R efill Prov:DAVID LUNDBERG MD 03/07/22 Furosemide (Lasix) 20 Mg Tb, 1 TAB PO DAILY for 5 Days, #5 TAB 1 Refill Prov:DAVID LUNDBERG MD 03/07/22 Ciprofloxacin Hcl (Cipro) 500 Mg Tab, 1 TAB PO BID for 7 Days, #14 TAB Prov:DAVID LUNDBERG MD 03/07/22 Omeprazole (Omeprazole Dr) 40 Mg Cap, 40 MG PO DAILY for 10 Days, #10 CAP Prov:DAVID LUNDBERG MD 03/07/22 Metoclopramide Hcl (Reglan) 10 Mg Tab, 10 MG PO BID for 5 Days, #10 TAB Prov:DAVID LUNDBERG MD 03/07/22 Levofloxacin (Levaquin) 500 Mg Tab, 500 MG PO DAILY, #7 TAB Prov:MARTHA GARCIA MD 04/02/21 Reported Medications Multiple Vitamins W/ Minerals (Womens Multi Gummies) 1 Chw Chw, 1 CHW PO DAILY, TAB.CHEW 04/01/21 Zinc Gluconate (ZINC) Unknown Strength Tab, PO EOD 1 TAB PO EVERY OTHER DAY PER PATIENT (PATIENT REPORTS STRENGTH 250 MG) 04/01/21 Cyanocobalamin (VITAMIN B 12) Unknown Strength Cristy, PO DAILY 1 TAB DAILY PER PATIENT 04/01/21 Ascorbic Acid (Vitamin C) 1,000 Mg Tab, 1000 MG PO DAILY 1000 MG TAB DAILY PER PATIENT 04/01/21 Acetaminophen (Tylenol Extra Strength) 500 Mg Tab, 2 TAB PO Q4HPRN, TAB EXTRA STRENGTH TYLENOL 2 TABS PO Q4HPRN PER PATIENT 04/01/21 Aspirin (Aspir-81) 81 Mg Tab, 1 TAB PO DAILY 04/01/21 Emtricitabine/Rilpivirine/Teno (Odefsey 200-25-25 mg) 1 Tab Tab, 1 TAB PO DAILY 1 TABLET DAILY PER PATIENT 04/01/21 Levetiracetam (Levetiracetam) 500 Mg Tab, 1 TAB PO BID 04/01/21 Information Source: Patient, Emergency Med Personnel Mode of Arrival: EMS Severity: Moderate Timing: Days (Symptoms started yesterday) Duration: Since onset Prehospital treatment: None Location: Right-sided facial swelling Associated signs and symptoms The patient is complaining of some nausea but no vomiting or diarrhea Past Medical History PAST MEDICAL HISTORY: Anxiety, CHF, CVA, High Lipids, HIV, HTN, Seizures, TIA, UTI'S Surgical History: Cholecystectomy, , Hernia Repair FIRE APPARATUS ENGINEER History: No Pertinent FIRE APPARATUS ENGINEER History Family History Family History: Family hx of Cancer, Family hx of stroke Social History Smoker: Non-Smoker Alcohol: Denies ETOH Use Drugs: Denies Drug Use Lives In: Home Constitutional: denies: chills, diaphoresis, fatigue, fever, malaise, sweats, weakness, others EENTM: denies: blurred vision, double vision, ear bleeding, ear discharge, ear drainage, ear pain, ear ringing, eye pain, eye redness, hearing loss, mouth pain, mouth swelling, nasal discharge, nose bleeding, nose congestion, nose pain, photophobia, tearing, throat pain, throat swelling, voice changes, others Respiratory: denies: cough, hemoptysis, orthopnea, SOB at rest, shortness of breath, SOB with excertion, stridor, wheezing, others Cardiovascular: denies: chest pain, dizzy spells, diaphoresis, Dyspnea on exertion, edema, irregular heart beat, left arm pain, lightheadedness, palpitations, PND, syncope, others Gastrointestinal: denies: abdomen distended, abdominal pain, blood streaked bowels, constipated, diarrhea, dysphagia, difficulty swallowing, hematemesis, melena, nausea, poor appetite, poor fluid intake, rectal bleeding, rectal pain, vomiting, others Genitourinary: denies: abnormal vagina bleeding, burning, dyspareunia, dysuria, flank pain, frequency, hematuria, incontinence, pain, , vagina discharge, urgency, others Neurological: denies: dizziness, fainting, headache, left sided numbness, left sided weakness, numbness, paresthesia, pre-existing deficit, right sided numbness, right sided weakness, seizure, speech problems, tingling, tremors, weakness, others Musculoskeletal: denies: back pain, gout, joint pain, joint swelling, muscle pain, muscle stiffness, neck pain, others Integumetry: denies: bruises, change in color, change in hair/nails, dryness, laceration, lesions, lumps, rash, wounds, others Allergic/Immunocompromised: denies: Difficulty Healing, Frequent Infections, Hives, Itching, others Hematologic/Lymphatic: denies: anemia, blood clots, easy bleeding, easy bruising, swollen glands, others Endocrine: denies: excessive hunger, excessive sweating, excessive thirst, excessive urination, flushing, intolerance to cold, intolerance to heat, une xplained weight gain, unexplained weight loss, others Psychiatric: denies: anxiety, bipolar disorder, depression, hopeless, panic disorder, schizophrenia, sleepless, suicidal, others Physical Exam General Appearance: Mild Distress HEENT: Pharynx Normal, TMs Normal, Other (Right-sided facial swelling around the zygoma and the maxillary region) Neck: Full Range of Motion, Non-Tender, Normal, Normal Inspection Respiratory: Chest Non-Tender, Lungs Clear, No Accessory Muscle Use, No Respiratory Distress, Normal Breath Sounds Cardiovascular: No Edema, No JVD, No Murmur, No Gallop, Normal Peripheral Pulses, Regular Rate/Rhythm Breast Exam: Deferred Gastrointestinal: No Organomegaly, Non Tender, No Pulsatile Mass, Normal Bowel Sounds, Soft Genitalia: Deferred Pelvic: Deferred Rectal: Deferred Extremities: No calf tenderness, Normal capillary refill, Normal inspection, Normal range of motion, Non-tender, No pedal edema Musculoskeletal : Apperance: Normal Neurologic: Alert, shearer printed circuit boards II-XII nml as Tested, No Motor Deficits, Normal Affect, Normal Mood, No Sensory Deficits Cerebellar Function: Normal Reflexes: Normal Skin: Dry, Normal Color, Warm Lymphatic: No Adenopathy Was a procedure done? Was a procedure done?: No Differential Dx Considerations may include: Dental caries, facial cellulitis X-Ray, Labs, Meds, VS Vital Signs Date Time Temp Pulse Resp B/P (MAP) Pulse Ox O2 Delivery O2 Flow Rate FiO2 08/08/25 04:40 98.2 86 16 140/98 99 98.2 The patient was given Toradol 60 mg IM The patient was also given Zofran 4 mg by mouth Time of 1ST Reevaluation: 04:54 Reevaluation 1ST: Unchanged Patient Education/Counseling: Diagnosis, Treatment, Prognosis, Need For Follow Up Family Education/Counseling: No Family Present SEPSIS Sepsis Screen Physician Orders Ketorolac Injection (Toradol Injection) (08/08/25 05:00) Ondansetron Po (Zofran Po) (08/08/25 05:00) Vital Signs Date Time Temp Pulse Resp B/P (MAP) Pulse Ox O2 Delivery O2 Flow Rate FiO2 08/08/25 04:40 98.2 86 16 140/98 99 98.2 Departure 1 Departure Time of Disposition: 04:54 Impression: Primary Impression: Dental caries Disposition: 01 HOME / SELF CARE / HOMELESS Condition: Fair e-Prescriptions Clindamycin Hcl (Clindamycin Hcl) 300 Mg Cap 1 CAP PO BID, #14 CAP Prov: FERNANDEZ GIANG MD 08/08/25 Ondansetron Odt 4MG Tab (ZOFRAN PO) 4 Mg Tb 4 MG PO Q12HP PRN for 5 Days, #10 TAB ODT TAB-DISSOLVE IN MOUTH, THEN SWALLOW Prov: FERNANDEZ GIANG MD 08/08/25 Tramadol HCl (Tramadol HCl) 50 Mg Tab 50 MG PO Q8HP PRN for 5 Days, #15 TAB Prov: FERNANDEZ GIANG MD 08/08/25 Discharged With: Self Critical Care Note Critical Care Time?: No Stability Stability form required: FERNANDEZ Duarte MD Aug 08, 2025 04:54
[2025-08-08] MEDS ORDERED: TRAM-626 PO (04:56)
[2025-08-08] MEDS ORDERED: CLIN1CAP70 PO (04:56)
[2025-08-08] MEDS ORDERED: ZOFR4T PO (04:56)
[2025-08-08 05:10] VITALS: BP 109/74; PULSE 92; RESP 16; TEMP 98.4; O2SAT 97
[2025-08-08] MEDS: ONDANSETRON ODT 4 MG TAB PO ONE (05:10)
[2025-08-08] MEDS: KETOROLAC TROMETH 60MG/2ML VIAL IM ONE (05:10)
== END 2025-08-08 05:29 | disposition home or self-care (01) ==
LOC: EDBD 04:40 → ER 04:40
DX: K02.9 Dental caries, unspecified (principal); I11.0 Hypertensive heart disease with heart failure; I50.9 Heart failure, unspecified; E78.5 Hyperlipidemia, unspecified; F41.9 Anxiety disorder, unspecified; Z79.82 Long term (current) use of aspirin; Z79.899 Other long term (current) drug therapy; Z86.73 Personal history of transient ischemic attack (TIA), and cerebral infarction without residual deficits; Z87.440 Personal history of urinary (tract) infections; Z88.0 Allergy status to penicillin; Z88.5 Allergy status to narcotic agent; Z88.8 Allergy status to other drugs, medicaments and biological substances; Z90.49 Acquired absence of other specified parts of digestive tract; Z98.890 Other specified postprocedural states
CPT/HCPCS: 96372; 99283; J1885; Q0162